=== PATIENT | female | born 1970 | race Caucasian/White ===

== ENCOUNTER 2017-08-11 10:45 | Inpatient (IN) | payer OTHER ==
[2017-08-11 11:00] VITALS: BMI 30.7
[2017-08-11] MEDS ORDERED: morphine CARPU-JECT 4 MG/1 ML DISP.SYRIN IVPUSH ONE ×2 (11:38→15:29)
[2017-08-11 11:40] LABS: URINE APPEARANCE SLCLOUDY; URINE BILIRUBIN NEGATIVE (NEGATIVE); URINE BLOOD NEGATIVE (NEGATIVE); URINE COLOR YELLOW; URINE GLUCOSE (UA) NEGATIVE (NEGATIVE); URINE KETONE NEGATIVE (NEGATIVE); URINE LEUK ESTERASE NEGATIVE (NEGATIVE); URINE NITRITE NEGATIVE (NEGATIVE); URINE PROTEIN NEGATIVE (NEGATIVE)
[2017-08-11 11:43] LABS: BASO % 0.2 % (0-2.0); EOS % 1.4 % (0-4.5); HEMATOCRIT 37.4 % (32.4-45.2); HEMOGLOBIN 12.6 GM/dL (10.7-15.3); MCH 30.1 pg (25.7-33.7); MCHC 33.7 g/dl (32.0-36.0); MEAN CELL VOLUME 89.2 fl (80-96); MEAN PLT VOLUME 9.1 fl (7.5-11.1); MONO % 6.1 % (3.8-10.2); NEUT % 75.3 % (42.8-82.8); PLATELET COUNT 204 K/MM3 (134-434); RBC 4.19 M/mm3 (3.60-5.2); RDW 13.1 % (11.6-15.6); WHITE BLOOD COUNT 11.2 K/mm3 (4.0-10.0)
--- NOTE | 2017-08-11 11:43 | PDOC ---
History of Present Illness - General Chief Complaint: Pain, Acute Stated Complaint: PAIN Time Seen by Provider: 08/11/17 11:35 History Source: Patient - History of Present Illness Timing/Duration: reports: other (yesterday) Quality: reports: severe Abdominal Pain Onset Location: reports: other (lower abd) Past History - Past Medical History Allergies/Adverse Reactions: Allergies Allergy/AdvReac Type Severity Reaction Status Date / Time No Known Allergies Allergy Verified 08/11/17 11:00 Home Medications: Ambulatory Orders NK [No Known Home Medication] 08/11/17 Asthma: Yes COPD: No - Surgical History Abdominal Surgery: No Appendectomy: No - Suicide/Smoking/Psychosocial Hx Smoking Status: No Smoking History: Never smoked Number of Cigarettes Smoked Daily: 0 Hx Alcohol Use: No Drug/Substance Use Hx: No Substance Use Type: None Review of Systems - Review of Systems Constitutional: No: Chills, Fever ABD/GI: No: Blood Streaked Bowels, Constipated, Diarrhea, Nausea, Vomiting : No: Burning, Dysuria, Flank Pain, Hematuria *Physical Exam - Vital Signs Last Vital Signs Temp Pulse Resp BP Pulse Ox 98.4 F 83 18 145/80 97 08/11/17 10:58 08/11/17 10:58 08/11/17 10:58 08/11/17 10:58 08/11/17 10:58 - Physical Exam General Appearance: Yes: Appropriately Dressed, Severe Distress HEENT: positive: Normal Voice Neck: positive: Supple Respiratory/Chest: negative: Respiratory Distress Gastrointestinal/Abdominal: positive: Normal Bowel Sounds, Tender (to lower abd diffusely), Soft. negative: Pulsatile Mass, Distended, Guarding, Rebound, Hernia, Mass Musculoskeletal: negative: CVA Tenderness Extremity: positive: Normal Inspection Integumentary: positive: Dry, Warm Neurologic: positive: Fully Oriented, Alert, Normal Mood/Affect ED Treatment Course - LABORATORY CBC & Chemistry Diagram: 08/11/17 11:30 08/11/17 11:30 Medical Decision Making - Medical Decision Making 08/11/17 11:39 46 yo F, h/o asthma, s/p csection x 2 remotely, p/w severe lower abd pain since yesterday. No change in BM, dysuria, vag discharge, n/v/f/c. No known h/o ovarian cysts/fibroids. No h/o similar pain. See exam Lower abd pain Pt appears very uncomfortable, writhing in pain but stable w/ poorly localized lower abd tenderness on exam Possible diverticulitis vs appy, less like SBO, pyelo, renal colic or pelvic pathology -pain control -IVF -labs -CT 08/11/17 13:23 Acute sigmoid diverticulitis without perf or abscess on CT. White count 11. Patient more comfortable with morphine and no n/v or fever. IV antibiotics in progress. Possibly can be treated as outpatient, will reassess 08/11/17 13:55 Signed out to ED resident pending reassessment *DC/Admit/Observation/Transfer Diagnosis at time of Disposition: Diverticulitis - Referrals - Patient Instructions - Post Discharge Activity
[2017-08-11] MEDS ORDERED: morphine SULFATE 4 MG/ML VIAL ONE ×2 (11:47→15:31)
[2017-08-11 12:02] LABS: ALBUMIN 4.1 g/dl (3.4-5.0); ANION GAP 7 (8-16); BLOOD UREA NITROGEN 12 mg/dL (7-18); CALCIUM 8.8 mg/dL (8.5-10.1); CHLORIDE 105 mmol/L (98-107); CO2 29 mmol/L (21-32); CREATININE 0.6 mg/dL (0.55-1.02); GLUCOSE,RANDOM 115 mg/dL (74-106); LIPASE 81 U/L (73-393); POTASSIUM 3.8 mmol/L (3.5-5.1); SGOT/AST 10 U/L (15-37); SGPT/ALT 24 U/L (12-78); SODIUM 141 mmol/L (136-145)
[2017-08-11 12:04] LABS: BILIRUBIN,TOTAL 0.7 mg/dL (0.2-1.0); TOT PROT 7.4 g/dl (6.4-8.2)
[2017-08-11 12:05] LABS: ALK PHOS 86 U/L (45-117)
[2017-08-11] MEDS ORDERED: CIPROFLOXACIN 400 MG/D5W 400 MG/200 ML IVPB IVPB ONE (13:22)
[2017-08-11] MEDS ORDERED: METRONIDAZOLE 500 MG PREMIXED 500 MG/100 ML MG IVPB ONE ×2 (13:22→13:33)
--- NOTE | 2017-08-11 14:46 | PDOC ---
*Physical Exam - Vital Signs Last Vital Signs Temp Pulse Resp BP Pulse Ox 98.4 F 83 18 145/80 97 08/11/17 10:58 08/11/17 10:58 08/11/17 10:58 08/11/17 10:58 08/11/17 10:58 - Physical Exam General Appearance: Yes: Nourished, Appropriately Dressed Respiratory/Chest: positive: Lungs Clear, Normal Breath Sounds Cardiovascular: positive: Regular Rhythm, Regular Rate, S1, S2 Gastrointestinal/Abdominal: positive: Normal Bowel Sounds, Soft, Protuberent, Tenderness (RLQ and LLQ ttp) ED Treatment Course - LABORATORY CBC & Chemistry Diagram: 08/11/17 11:30 08/11/17 11:30 - ADDITIONAL ORDERS Additional order review: Laboratory Results 08/11/17 08/11/17 08/11/17 11:44 11:30 11:30 Sodium 141 Potassium 3.8 Chloride 105 Carbon Dioxide 29 D Anion Gap 7 L BUN 12 D Creatinine 0.6 Creat Clearance w eGFR > 60 Random Glucose 115 H Calcium 8.8 Total Bilirubin 0.7 D AST 10 L ALT 24 Alkaline Phosphatase 86 D Total Protein 7.4 Albumin 4.1 Lipase 81 Serum , Qual Negative Urine Color Urine Appearance Urine pH Ur Specific [place] Urine Protein Urine Glucose (UA) Urine Ketones Urine Blood Urine Nitrite Urine Bilirubin Urine Urobilinogen Urine HCG, Qual Negative 08/11/17 11:30 Sodium Potassium Chloride Carbon Dioxide Anion Gap BUN Creatinine Creat Clearance w eGFR Random Glucose Calcium Total Bilirubin AST ALT Alkaline Phosphatase Total Protein Albumin Lipase Serum , Qual Urine Color Yellow Urine Appearance Slcloudy Urine pH 7.0 Ur Specific [place] 1.018 Urine Protein Negative Urine Glucose (UA) Negative Urine Ketones Negative Urine Blood Negative Urine Nitrite Negative Urine Bilirubin Negative Urine Urobilinogen 2.0 H Urine HCG, Qual 08/11/17 11:30 RBC 4.19 MCV 89.2 MCHC 33.7 RDW 13.1 MPV 9.1 Neutrophils % 75.3 D Lymphocytes % 17.0 D Monocytes % 6.1 Eosinophils % 1.4 D Basophils % 0.2 - Medications Given in the ED: ED Medications Discontinued Medications Generic Name Dose Route Start Last Admin Trade Name Freq PRN Reason Stop Dose Admin Metronidazole 500 mg in 100 mls @ 100 mls/hr 08/11/17 13:22 08/11/17 13:48 Flagyl 500mg Premixed Ivpb - IVPB 08/11/17 14:21 100 mls/hr ONCE ONE Administration Morphine Sulfate 4 mg 08/11/17 11:38 08/11/17 11:55 Morphine Injection - IVPUSH 08/11/17 11:39 4 mg ONCE ONE Administration Medical Decision Making - Medical Decision Making 08/11/17 15:05 46yo woman with h/o asthma s/p who presents with severe lower abdominal pain and imaging c/w acute sigmoid diverticulitis w/o perforation or abscess. Received one dose of Ciprofloxacin and Flagyl. 08/11/17 15:47 Patient continues have significant abdominal pain (03/13), and now reports chills. Last morphine was ~3hours ago. Will give additional morphine and request admission for further management. 08/11/17 17:50 Accepted by [facility] under Dr. Malik to M/S. *DC/Admit/Observation/Transfer Diagnosis at time of Disposition: Diverticulitis - Referrals - Patient Instructions - Post Discharge Activity
[2017-08-11] MEDS ORDERED: morphine SULFATE 4 MG/ML VIAL IVPUSH PRN (17:14)
--- NOTE | 2017-08-11 17:16 | PN ---
Teaching Attending Note Name of Resident: Brooke Eli ATTENDING PHYSICIAN STATEMENT I saw and evaluated the patient. I reviewed the resident's note and discussed the case with the resident. I agree with the resident's findings and plan as documented. SUBJECTIVE: Patient is a 46yo F with PMH of asthma presents with severe bilateral lower quadrant abdominal pain x 1 day. Pain is 10/10/ sharp , and sometimes radiates to her back. PATIENT denies fever, chills, hematemesis, nausea, vomiting, diarrhea, hematochezia, melena, chest pain, sob. OBJECTIVE: Vital Signs Temperature 98.4 F 08/11/17 10:58 Pulse Rate 83 08/11/17 10:58 Respiratory Rate 18 08/11/17 10:58 Blood Pressure 145/80 08/11/17 10:58 O2 Sat by Pulse Oximetry (%) 97 08/11/17 10:58 CBCD WBC 11.2 K/mm3 (4.0-10.0) H 08/11/17 11:30 RBC 4.19 M/mm3 (3.60-5.2) 08/11/17 11:30 Hgb 12.6 GM/dL (10.7-15.3) 08/11/17 11:30 Hct 37.4 % (32.4-45.2) 08/11/17 11:30 MCV 89.2 fl (80-96) 08/11/17 11:30 MCHC 33.7 g/dl (32.0-36.0) 08/11/17 11:30 RDW 13.1 % (11.6-15.6) 08/11/17 11:30 Plt Count 204 K/MM3 (134-434) D 08/11/17 11:30 MPV 9.1 fl (7.5-11.1) 08/11/17 11:30 CMP Sodium 141 mmol/L (136-145) 08/11/17 11:30 Potassium 3.8 mmol/L (3.5-5.1) 08/11/17 11:30 Chloride 105 mmol/L (98-107) 08/11/17 11:30 Carbon Dioxide 29 mmol/L (21-32) D 08/11/17 11:30 Anion Gap 7 (8-16) L 08/11/17 11:30 BUN 12 mg/dL (7-18) D 08/11/17 11:30 Creatinine 0.6 mg/dL (0.55-1.02) 08/11/17 11:30 Creat Clearance w eGFR > 60 (>60) 08/11/17 11:30 Random Glucose 115 mg/dL (74-106) H 08/11/17 11:30 Calcium 8.8 mg/dL (8.5-10.1) 08/11/17 11:30 Total Bilirubin 0.7 mg/dL (0.2-1.0) D 08/11/17 11:30 AST 10 U/L (15-37) L 08/11/17 11:30 ALT 24 U/L (12-78) 08/11/17 11:30 Alkaline Phosphatase 86 U/L (45-117) D 08/11/17 11:30 Total Protein 7.4 g/dl (6.4-8.2) 08/11/17 11:30 Albumin 4.1 g/dl (3.4-5.0) 08/11/17 11:30 Current Medications Generic Name Dose Route Start Last Admin Trade Name Freq PRN Reason Stop Dose Admin Heparin Sodium (Porcine) 5,000 unit 08/11/17 18:00 Heparin - SQ Q8H-IV SYLVIA Sodium Chloride 1,000 mls @ 100 mls/hr 08/11/17 17:15 Normal Saline - IV ASDIR SYLVIA Morphine Sulfate 2 mg 08/11/17 17:14 Morphine Injection - IVPUSH Q4H PRN PAIN Home Medications Medication Instructions Recorded NK [No Known Home Medication] 08/11/17 PE: per resident's notes Heart: S1S2 positive CHEST: CTABL Abdomen:diffuse tenderness to palpation EXT: pulses are positive. ASSESSMENT AND PLAN: 46yo woman with h/o asthma s/p who presents with severe lower abdominal pain and imaging c/w acute sigmoid diverticulitis w/o perforation or abscess. # Acute diverticulitis on Flagyl and Rocephin IN, for consult, NPO, IVF. pain meds morphine prn # Hx of asthma stable DVT ppx with Heparin sq GI ppx with Pepcid BID
[2017-08-11] MEDS: SODIUM CHLORIDE 1,000 ML IV SCH (17:51)
[2017-08-11] MEDS ORDERED: METRONIDAZOLE PREMIXED IVPB 250 MG/50 ML MG IVPB SCH (18:00)
--- NOTE | 2017-08-11 18:22 | HP ---
CHIEF COMPLAINT: abdominal pain PCP: [facility] HISTORY OF PRESENT ILLNESS: 46yo F with PMH of asthma presents with severe royal lower quadrant abdominal pain x 1 day. Pain is described as sharp, rated 10/10 at its peak. Pain sometimes radiates to her back. Pt has had smaller bowel movements since yesterday which she attributes to this pain (on straining). Pt found to have acute sigmoid diverticulitis on CTAP. Pt denies sick contacts. Pt denies fever , chills, hematemesis, nausea, vomiting, diarrhea, hematochezia, melena, chest pain, sob. ER course was notable for: (1) CT Ab/Pelvis reveals acute sigmoid diverticulitis (2) Ceftriaxone and Flagyl given (3) Morphine given for pain PAST MEDICAL HISTORY: asthma PAST SURGICAL HISTORY: c-sections in 2006 and 2007 Social History: Smoking: never Alcohol: denies Drugs: denies Family History: 2 brothers with DM Allergies No Known Allergies Allergy (Verified 08/11/17 11:00) HOME MEDICATIONS: Home Medications Medication Instructions Recorded NK [No Known Home Medication] 08/11/17 REVIEW OF SYSTEMS CONSTITUTIONAL: Absent: fever, chills, diaphoresis, generalized weakness, malaise, loss of appetite, weight change HEENT: Absent: rhinorrhea, nasal congestion, throat pain, ear pain, visual changes CARDIOVASCULAR: Absent: chest pain, palpitations, irregular heart rate, lightheadedness, peripheral edema RESPIRATORY: Absent: cough, shortness of breath, wheezing, stridor, hemoptysis GASTROINTESTINAL: abdominal pain Absent: abdominal distension, nausea, vomiting, diarrhea, constipation, melena, hematochezia GENITOURINARY: Absent: dysuria, hematuria MUSCULOSKELETAL: Absent: myalgia, arthralgia, back pain, neck pain SKIN: Absent: rash, itching, pallor HEMATOLOGIC/IMMUNOLOGIC: Absent: easy bleeding, easy bruising NEUROLOGIC: Absent: headache, focal weakness or paresthesias PHYSICAL EXAMINATION Vital Signs - 24 hr 08/11/17 08/11/17 10:58 17:32 Temperature 98.4 F 99 F Pulse Rate 83 Pulse Rate [ 88 Right Radial] Respiratory 18 18 Rate Blood Pressure 145/80 Blood Pressure 146/80 [Left Arm] O2 Sat by Pulse 97 97 Oximetry (%) GENERAL: Awake, alert, and fully oriented, in no acute distress. HEAD: Normal with no signs of trauma. EYES: Pupils equal, round and reactive to light, extraocular movements intact, sclera anicteric, conjunctiva clear. No lid lag. EARS, NOSE, THROAT: Oropharynx clear without exudates. Moist mucous membranes. NECK: Trachea midline, supple. LUNGS: Breath sounds equal, clear to auscultation bilaterally. No wheezes, and no crackles. No accessory muscle use. HEART: Regular rate and rhythm, normal S1 and S2 without murmur, rub or gallop. ABDOMEN: Royal lower quadrants tender to palpation. Soft, not distended, normoactive bowel sounds, no guarding, no rebound, no masses. MUSCULOSKELETAL: Normal range of motion at all joints. No bony deformities or tenderness. No CVA tenderness. LOWER EXTREMITIES: Warm, well-perfused. No calf tenderness. No peripheral edema. NEUROLOGICAL: Muscle strength 5/5 throughout. No facial droop. Normal speech. PSYCHIATRIC: Cooperative. Good eye contact. Appropriate mood and affect. SKIN: Warm, dry, normal turgor, no rashes or lesions noted, normal capillary refill. Laboratory Results - last 24 hr 08/11/17 08/11/17 08/11/17 11:30 11:30 11:30 WBC 11.2 H RBC 4.19 Hgb 12.6 Hct 37.4 MCV 89.2 MCH 30.1 MCHC 33.7 RDW 13.1 Plt Count 204 D MPV 9.1 Neutrophils % 75.3 D Lymphocytes % 17.0 D Monocytes % 6.1 Eosinophils % 1.4 D Basophils % 0.2 Sodium 141 Potassium 3.8 Chloride 105 Carbon Dioxide 29 D Anion Gap 7 L BUN 12 D Creatinine 0.6 Creat Clearance w eGFR > 60 Random Glucose 115 H Calcium 8.8 Total Bilirubin 0.7 D AST 10 L ALT 24 Alkaline Phosphatase 86 D Total Protein 7.4 Albumin 4.1 Lipase 81 Serum , Qual Urine Color Yellow Urine Appearance Slcloudy Urine pH 7.0 Ur Specific [place] 1.018 Urine Protein Negative Urine Glucose (UA) Negative Urine Ketones Negative Urine Blood Negative Urine Nitrite Negative Urine Bilirubin Negative Urine Urobilinogen 2.0 H Ur Leukocyte Esterase Negative Urine HCG, Qual 08/11/17 08/11/17 11:30 11:44 WBC RBC Hgb Hct MCV MCH MCHC RDW Plt Count MPV Neutrophils % Lymphocytes % Monocytes % Eosinophils % Basophils % Sodium Potassium Chloride Carbon Dioxide Anion Gap BUN Creatinine Creat Clearance w eGFR Random Glucose Calcium Total Bilirubin AST ALT Alkaline Phosphatase Total Protein Albumin Lipase Serum , Qual Negative Urine Color Urine Appearance Urine pH Ur Specific [place] Urine Protein Urine Glucose (UA) Urine Ketones Urine Blood Urine Nitrite Urine Bilirubin Urine Urobilinogen Ur Leukocyte Esterase Urine HCG, Qual Negative IMAGIN08/11/17 CT Ab/Pel -> (1) Acute sigmoid diverticulitis with small volume of free fluid, sans evidence of perforation. No drainable collection at this time. (2 ) Mild hepatomegaly and hepatic steatosis. (3) 1.9 x 1.6 cm Right adnexal cystic lesion. ASSESSMENT/PLAN: 46yo F with PMH of asthma presents with severe royal lower quadrant abdominal pain , found to have acute sigmoid diverticulitis, admitted to Med-Surg. # diverticulitis - monitor leukocytosis - GI Consult - Dr. Crowder - f/u urine culture - continue IV Ceftriaxone and IV Flagyl - pain control with Morphine prn # asthma - inactive # FEN - Fluids: NS @ 100 ml/hr - Electrolytes: wnl, continue to monitor - Nutrition: npo # Prophylaxis - DVT ppx with Heparin TID - GI ppx with Pepcid BID Visit type - Emergency Visit Emergency Visit: Yes ED Registration Date: 08/11/17 Care time: The patient presented to the Emergency Department on the above date and was hospitalized for further evaluation of their emergent condition. - New Patient This patient is new to me today: Yes Date on this admission: 08/11/17 - Critical Care Critical Care patient: No
[2017-08-11] MEDS ORDERED: FLU VACCINE QUAD 60 MCG/0.5 ML (MDV 17-18) IM ONE (19:30)
[2017-08-11] MEDS: METRONIDAZOLE 500 MG PREMIXED 500 MG/100 ML MG IVPB SCH (20:38)
[2017-08-11] MEDS: HEPARIN NA (PORCINE) 5,000 UNITS/ML 1ML VIAL SQ SCH (22:24)
[2017-08-11] MEDS: FAMOTIDINE IV 20 MG/12 ML VIAL IVPUSH SCH (22:24)
[2017-08-12] MEDS: CEFTRIAXONE 1 G/50 ML PREMIX 50 ML IVPB SCH ×2 (01:56→09:13)
[2017-08-12] MEDS ORDERED: CEFTRIAXONE 1 GM in DEXTROSE 5%-WATER - 100 ML IVPB SCH (02:00)
[2017-08-12] MEDS: METRONIDAZOLE 500 MG PREMIXED 500 MG/100 ML MG IVPB SCH ×4 (02:39→21:55)
[2017-08-12] MEDS: morphine SULFATE 4 MG/ML VIAL IVPUSH PRN ×3 (05:43→12:41)
[2017-08-12] MEDS: HEPARIN NA (PORCINE) 5,000 UNITS/ML 1ML VIAL SQ SCH ×3 (05:43→22:41)
[2017-08-12] MEDS: SODIUM CHLORIDE 1,000 ML IV SCH (05:45)
[2017-08-12 08:27] LABS: HEMATOCRIT 33.9 % (32.4-45.2); HEMOGLOBIN 11.7 GM/dL (10.7-15.3); MCH 30.8 pg (25.7-33.7); MCHC 34.3 g/dl (32.0-36.0); MEAN CELL VOLUME 89.7 fl (80-96); MEAN PLT VOLUME 9.5 fl (7.5-11.1); PLATELET COUNT 178 K/MM3 (134-434); RBC 3.79 M/mm3 (3.60-5.2); RDW 12.8 % (11.6-15.6); WHITE BLOOD COUNT 10.7 K/mm3 (4.0-10.0)
[2017-08-12 08:41] LABS: INR 1.41 (0.82-1.09); PROTHROMBIN TIME (PATIENT) 15.9 SEC (9.98-11.88)
[2017-08-12 08:44] LABS: ACTIVATED PTT 36.2 SECONDS (26.9-34.4)
[2017-08-12 08:56] LABS: ANION GAP 9 (8-16); BLOOD UREA NITROGEN 12 mg/dL (7-18); CALCIUM 7.5 mg/dL (8.5-10.1); CHLORIDE 106 mmol/L (98-107); CO2 25 mmol/L (21-32); CREATININE 0.5 mg/dL (0.55-1.02); GLUCOSE,RANDOM 102 mg/dL (74-106); POTASSIUM 3.3 mmol/L (3.5-5.1); SODIUM 140 mmol/L (136-145)
[2017-08-12] MEDS ORDERED: PT OWN MED DRAWER 7, Y5N ONE (09:10)
--- NOTE | 2017-08-12 09:11 | PN ---
Physical Exam: SUBJECTIVE: Patient seen and examined Less pain than yesterday , and feeling better. Still having pain. OBJECTIVE: Vital Signs Temperature 99.3 F 08/12/17 08:00 Pulse Rate 81 08/12/17 08:00 Respiratory Rate 18 08/12/17 08:00 Blood Pressure 113/67 08/12/17 08:00 O2 Sat by Pulse Oximetry (%) 97 08/11/17 22:00 GENERAL: The patient is awake, alert, and fully oriented, in no acute distress. HEAD: Normal with no signs of trauma. EYES: PERRL, extraocular movements intact, sclera anicteric, conjunctiva clear. ENT: Ears normal, oropharynx clear without exudates, moist mucous membranes. NECK: Trachea midline, full range of motion, supple. LUNGS: Breath sounds equal, clear to auscultation bilaterally, no wheezes, no crackles, no accessory muscle use. HEART: Regular rate and rhythm, S1, S2 without murmur, rub or gallop. ABDOMEN: Soft, mild tenderness, nondistended, normoactive bowel sounds, no guarding, no rebound, no hepatosplenomegaly, no masses appreciated. EXTREMITIES: 2+ pulses, warm, well-perfused, no edema. NEUROLOGICAL: Cranial nerves II through XII grossly intact. Normal speech, gait not observed. PSYCH: Normal mood, normal affect. SKIN: Warm, dry, normal turgor, no rashes or lesions noted Active Medications Generic Name Dose Route Start Last Admin Trade Name Freq PRN Reason Stop Dose Admin Heparin Sodium (Porcine) 5,000 unit 08/11/17 22:00 08/12/17 05:43 Heparin - SQ 5,000 unit TID SYLVIA Administration Sodium Chloride 1,000 mls @ 100 mls/hr 08/11/17 17:15 08/12/17 05:45 Normal Saline - IV 100 mls/hr ASDIR SYLVIA Administration Metronidazole 500 mg in 100 mls @ 100 mls/hr 08/11/17 17:30 08/12/17 02:39 Flagyl 500mg Premixed Ivpb - IVPB 100 mls/hr Q6H-IV SYLVIA Administration CEFTRIAXONE 1 G/50 ML PREMIX 50 mls @ 100 mls/hr 08/12/17 02:00 08/12/17 01: 56 Ceftriaxone 1 Gm-D5w Bag IVPB 100 mls/hr DAILY SYLVIA Administration Famotidine 20 mg in 12 mls @ 144 mls/hr 08/11/17 22:00 08/11/17 22:24 Pepcid 20 Mg/12 Ml Push IVPUSH 144 mls/hr BID SYLVIA Administration Morphine Sulfate 1 mg 08/11/17 19:10 08/12/17 05:43 Morphine Sulfate IVPUSH 1 mg Q3H PRN Administration PAIN Home Medications Medication Instructions Recorded NK [No Known Home Medication] 08/11/17 08/11/17 CT Ab/Pelvis: Acute sigmoid diverticulitis with small volume of free fluid, sans evidence of perforation. No drainable collection at this time. Mild hepatomegaly and hepatic steatosis. 1.9 x 1.6 cm Right adnexal cystic lesion. ASSESSMENT/PLAN: 46yo F with PMH of asthma presents with severe sue lower quadrant abdominal pain , found to have acute sigmoid diverticulitis, admitted to Med-Surg. # Acute diverticulitis on Flagyl and Rocephin IV continue seen by covering for for consult, NPO, IVF. pain meds morphine prn reduced the dose f ,morphine to 1gm q8h. # Hx of asthma stable; patient doesn't take any meds. DVT ppx with Heparin sq GI ppx with Pepcid BID Visit type - Emergency Visit Emergency Visit: Yes ED Registration Date: 08/11/17 Care time: The patient presented to the Emergency Department on the above date and was hospitalized for further evaluation of their emergent condition. - New Patient This patient is new to me today: No - Critical Care Critical Care patient: No
--- NOTE | 2017-08-12 12:19 | CON.GI ---
Consult Consult Specialty:: Gastroenterology ( covering Dr Crowder) Referred by:: Dr Rg Reason for Consultation:: Abdominal pain - History of Present Illness Chief Complaint: LLQ pain since 08/10 History of Present Illness: 46F developed LLQ pain on 08/10 that became much worse yesterday. She had fevers at home and has been constipated since her pain began. She has never had this pain before. She generally moves her bowels daily and denies any recent change in stool caliber. No FH of colon cancer. The pain is sharp and constant. History is obtained using [employer] interpreter # [id number]. 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 (year): age 15 History of Recent Travel: No Home Medications - Allergies Allergies/Adverse Reactions: Allergies Allergy/AdvReac Type Severity Reaction Status Date / Time No Known Allergies Allergy Verified 08/11/17 11:00 - Home Medications Home Medications: Ambulatory Orders NK [No Known Home Medication] 08/11/17 Family Disease History - Family Disease History Family Disease History: Diabetes: Brother, Respiratory: Father ( 67 of respiratory illness), Other: Mother ( age 37 during childbirth) Review of Systems - Review of Systems Constitutional: reports: Chills, Fever Eyes: reports: No Symptoms HENT: reports: No Symptoms Neck: reports: No Symptoms Cardiovascular: reports: No Symptoms Respiratory: reports: No Symptoms Gastrointestinal: reports: Abdominal Pain, Constipation Genitourinary: reports: No Symptoms Musculoskeletal: reports: No Symptoms Neurological: reports: No Symptoms Physical Exam-GI Vital Signs: Vital Signs Temperature 99.3 F 08/12/17 08:00 Pulse Rate 81 08/12/17 08:00 Respiratory Rate 18 08/12/17 08:00 Blood Pressure 113/67 08/12/17 08:00 O2 Sat by Pulse Oximetry (%) 97 12/08/17 22:00 CBC,CMP WBC 10.7 K/mm3 (4.0-10.0) H 08/12/17 07:30 RBC 3.79 M/mm3 (3.60-5.2) 08/12/17 07:30 Hgb 11.7 GM/dL (10.7-15.3) 08/12/17 07:30 Hct 33.9 % (32.4-45.2) 08/12/17 07:30 MCV 89.7 fl (80-96) 08/12/17 07:30 MCH 30.8 pg (25.7-33.7) 08/12/17 07:30 MCHC 34.3 g/dl (32.0-36.0) 08/12/17 07:30 RDW 12.8 % (11.6-15.6) 08/12/17 07:30 Plt Count 178 K/MM3 (134-434) 08/12/17 07:30 MPV 9.5 fl (7.5-11.1) 08/12/17 07:30 Neutrophils % 75.3 % (42.8-82.8) D 08/11/17 11:30 Lymphocytes % 17.0 % (8-40) D 08/11/17 11:30 Monocytes % 6.1 % (3.8-10.2) 08/11/17 11:30 Eosinophils % 1.4 % (0-4.5) D 08/11/17 11:30 Basophils % 0.2 % (0-2.0) 08/11/17 11:30 Sodium 140 mmol/L (136-145) 08/12/17 07:30 Potassium 3.3 mmol/L (3.5-5.1) L 08/12/17 07:30 Chloride 106 mmol/L (98-107) 08/12/17 07:30 Carbon Dioxide 25 mmol/L (21-32) 08/12/17 07:30 Anion Gap 9 (8-16) 08/12/17 07:30 BUN 12 mg/dL (7-18) 08/12/17 07:30 Creatinine 0.5 mg/dL (0.55-1.02) L 08/12/17 07:30 Creat Clearance w eGFR > 60 (>60) 08/11/17 11:30 Random Glucose 102 mg/dL (74-106) 08/12/17 07:30 Calcium 7.5 mg/dL (8.5-10.1) L 08/12/17 07:30 Total Bilirubin 0.7 mg/dL (0.2-1.0) D 08/11/17 11:30 AST 10 U/L (15-37) L 08/11/17 11:30 ALT 24 U/L (12-78) 08/11/17 11:30 Alkaline Phosphatase 86 U/L (45-117) D 08/11/17 11:30 Total Protein 7.4 g/dl (6.4-8.2) 08/11/17 11:30 Albumin 4.1 g/dl (3.4-5.0) 08/11/17 11:30 Lipase 81 U/L (73-393) 08/11/17 11:30 Serum , Qual Negative 08/11/17 11:44 Current Medications Generic Name Dose Route Start Last Admin Trade Name Freq PRN Reason Stop Dose Admin Heparin Sodium (Porcine) 5,000 unit 08/11/17 22:00 08/12/17 05:43 Heparin - SQ 5,000 unit TID SYLVIA Administration Sodium Chloride 1,000 mls @ 100 mls/hr 08/11/17 17:15 08/12/17 05:45 Normal Saline - IV 100 mls/hr ASDIR SYLVIA Administration Metronidazole 500 mg in 100 mls @ 100 mls/hr 08/11/17 17:30 08/12/17 09:13 Flagyl 500mg Premixed Ivpb - IVPB 100 mls/hr Q6H-IV SYLVIA Administration CEFTRIAXONE 1 G/50 ML PREMIX 50 mls @ 100 mls/hr 08/12/17 02:00 08/12/17 09: 13 Ceftriaxone 1 Gm-D5w Bag IVPB 100 mls/hr DAILY SYLVIA Administration Famotidine 20 mg in 12 mls @ 144 mls/hr 08/11/17 22:00 08/11/17 22:24 Pepcid 20 Mg/12 Ml Push IVPUSH 144 mls/hr BID SYLVIA Administration Morphine Sulfate 1 mg 08/11/17 19:10 08/12/17 05:43 Morphine Sulfate IVPUSH 1 mg Q3H PRN Administration PAIN Constitutional: Yes: Well Nourished Eyes: Yes: Conjunctiva Clear HENT: Yes: Atraumatic Neck: Yes: Supple Cardiovascular: Yes: Regular Rate and Rhythm Respiratory: Yes: CTA Bilaterally Gastrointestinal Inspection: Yes: Scars (healed Pfannensteil incision) ...Auscultate: Yes: Hypoactive Bowel Sounds ...Palpate: Yes: Tenderness (suprapubic and LLQ) ...Rectal Exam: Yes: Guaiac Negative, Sphincter Tone Normal Edema: No Integumentary: Yes: WNL Neurological: Yes: Alert Labs: CBC, BMP 08/12/17 07:30 08/12/17 07:30 INR, PTT INR 1.41 (0.82-1.09) H 08/12/17 07:30 Imaging - Results Cat Scan: Report Reviewed (Natalio Zapien Name: [facility] Phys: Penelope Quarles : 1970 Age: 46 Sex: F [facility] Acct: [id number] Loc: [address] Exam Date: 08/11/17 Status: [place] [id number] Unit Number: [id number] EXAM#: TYPE/EXAM: RESULT: [id number] CT/ABDOMEN PELVIS CT WITH CONTR EXAM: CT abdomen and pelvis with IV contrast. INDICATION: Lower abdominal pain. TECHNIQUE: Contiguous axial CT images of the abdomen and pelvis were obtained without oral contrast , following intravenous administration of 100 mL of Omnipaque 350 contrast. Coronal and sagittal reconstructions obtained. COMPARISON: None. FINDINGS: The visualized lung bases are unremarkable. The heart is borderline in size. The liver is enlarged measuring up to 15.5 cm in the midclavicular line, with normal contour. There is hepatic steatosis. The gallbladder is not pathologically distended. There is no evidence of biliary ductal dilatation. The pancreas is unremarkable. Normal size spleen, with no focal lesions. There is no mass in the adrenal glands. The kidneys are normal in size with symmetric enhancement. There is no hydroureteronephrosis. Normal caliber abdominal aorta. There are no pathologically enlarged retroperitoneal lymph nodes by CT size criteria. There is acute diverticulitis in the sigmoid colon with extensive pericolonic fat stranding and thickening of the mesocolon. There is a small volume of free fluid in the surrounding fat layering in the pelvis. There is no drainable collection within the abdomen or pelvis. There is no free intraperitoneal air. There are no dilated loops of large or small bowel to suggest obstruction. The uterus is unremarkable. There is a 1.9 x 1.6 cm right adnexal cystic lesion. The urinary bladder is underdistended, limiting evaluation. There is no evidence of acute fracture in the visualized osseous structures. IMPRESSION: 1. Acute sigmoid diverticulitis with small volume of free fluid. No CT evidence of perforation. No drainable collection at this time. 2. Mild hepatomegaly. Hepatic steatosis. 3. Nonspecific 1.9 x 1.6 cm right adnexal cystic lesion. Reported By: Adrienne Roger DO 08/11/17 1312 Bernie Quarles Technologist : Ottoniel Singletary Transcribed Date/Time: 08/11/17 1312 [employer]: Adrienne Roger DO Printed Date/Time: By: Signed by: Adrienne Roger Signed on: 11-Aug-2017 13:13) Problem List - Problems (1) Constipated Assessment/Plan: Related to diverticulitis Code(s): K59.00 - CONSTIPATION, UNSPECIFIED (2) Diverticulitis Assessment/Plan: Clinical picture and CT entirely consistent with sigmoid diverticulitis. No overt abscess is seen. I have discussed the potential need for surgery including a temporary colostomy if she fails to respond to antibiotics. Advised surgical consultation . Continue NPO and antibiotics. Dr Crowder will return 08/14. Code(s): K57.92 - DVTRCLI OF INTEST, PART UNSP, W/O PERF OR ABSCESS W/O BLEED
[2017-08-12] MEDS ORDERED: ACETAMINOPHEN 325 MG TABLET (FP) PO PRN (12:48)
[2017-08-12] MEDS: FAMOTIDINE IV 20 MG/12 ML VIAL IVPUSH SCH ×2 (12:50→21:57)
[2017-08-12] MEDS: D5-1/2NS+40 MEQ KCL - 40 MEQ/1,000 ML INFUS.BAG IV SCH (15:15)
[2017-08-12] MEDS ORDERED: morphine SULFATE 4 MG/ML VIAL IVPUSH PRN (17:54)
[2017-08-13] MEDS: HEPARIN NA (PORCINE) 5,000 UNITS/ML 1ML VIAL SQ SCH ×3 (05:32→21:08)
[2017-08-13] MEDS: D5-1/2NS+40 MEQ KCL - 40 MEQ/1,000 ML INFUS.BAG IV SCH ×2 (05:33→15:15)
[2017-08-13 08:41] LABS: ALBUMIN 3.2 g/dl (3.4-5.0); ANION GAP 6 (8-16); BILIRUBIN,TOTAL 0.5 mg/dL (0.2-1.0); BLOOD UREA NITROGEN 8 mg/dL (7-18); CALCIUM 8.2 mg/dL (8.5-10.1); CHLORIDE 109 mmol/L (98-107); CO2 26 mmol/L (21-32); CREATININE 0.5 mg/dL (0.55-1.02); GLUCOSE,RANDOM 112 mg/dL (74-106); MAGNESIUM 1.9 mg/dL (1.8-2.4); POTASSIUM 4.1 mmol/L (3.5-5.1); SGOT/AST 11 U/L (15-37); SGPT/ALT 16 U/L (12-78); SODIUM 141 mmol/L (136-145); TOT PROT 6.5 g/dl (6.4-8.2)
[2017-08-13 08:42] LABS: ALK PHOS 66 U/L (45-117); PHOSPHOROUS 2.1 mg/dL (2.5-4.9)
[2017-08-13 08:54] LABS: BASO % 0.2 % (0-2.0); EOS % 2.5 % (0-4.5); HEMATOCRIT 34.6 % (32.4-45.2); HEMOGLOBIN 11.8 GM/dL (10.7-15.3); LYMPH % 33.4 % (8-40); MCH 30.9 pg (25.7-33.7); MCHC 34.1 g/dl (32.0-36.0); MEAN CELL VOLUME 90.7 fl (80-96); MEAN PLT VOLUME 9.5 fl (7.5-11.1); MONO % 6.8 % (3.8-10.2); NEUT % 57.1 % (42.8-82.8); PLATELET COUNT 184 K/MM3 (134-434); RBC 3.82 M/mm3 (3.60-5.2); RDW 12.8 % (11.6-15.6); WHITE BLOOD COUNT 7.5 K/mm3 (4.0-10.0)
[2017-08-13] MEDS ORDERED: morphine SULFATE 4 MG/ML VIAL IVPUSH PRN (09:58)
[2017-08-13] MEDS: METRONIDAZOLE 500 MG PREMIXED 500 MG/100 ML MG IVPB SCH ×3 (10:00→21:09)
[2017-08-13] MEDS: CEFTRIAXONE 1 G/50 ML PREMIX 50 ML IVPB SCH (10:15)
[2017-08-13] MEDS: FAMOTIDINE IV 20 MG/12 ML VIAL IVPUSH SCH ×2 (10:16→21:09)
--- NOTE | 2017-08-13 10:39 | PN ---
Progress Note (short form) - Note Progress Note: Attending Surgeon Patient seen and evaluated; chart reviewed; full note to follow. Elvis Espinoza MD FACS
--- NOTE | 2017-08-13 10:57 | PN ---
Progress Note (short form) - Note Progress Note: Patient is feeling better today with no acute distress. Used only one time of pain medication at night time. Vital Signs Temperature 98.2 F 08/13/17 08:00 Pulse Rate 76 08/13/17 08:00 Respiratory Rate 18 08/13/17 08:00 Blood Pressure 121/81 08/13/17 08:00 O2 Sat by Pulse Oximetry (%) 98 08/13/17 08:52 GENERAL: The patient is awake, alert, and fully oriented, in no acute distress. HEAD: Normal with no signs of trauma. EYES: PERRL, extraocular movements intact, sclera anicteric, conjunctiva clear. ENT: Ears normal, oropharynx clear without exudates, moist mucous membranes. NECK: Trachea midline, full range of motion, supple. LUNGS: Breath sounds equal, clear to auscultation bilaterally, no wheezes, no crackles, no accessory muscle use. HEART: Regular rate and rhythm, S1, S2 without murmur, rub or gallop. ABDOMEN: Soft, no tenderness today on palpation, feels better, nondistended, normoactive bowel sounds, no guarding, no rebound, no hepatosplenomegaly, no masses appreciated. EXTREMITIES: 2+ pulses, warm, well-perfused, no edema. NEUROLOGICAL: Cranial nerves II through XII grossly intact. Normal speech, gait not observed. PSYCH: Normal mood, normal affect. SKIN: Warm, dry, normal turgor, no rashes or lesions noted CBCD WBC 7.5 K/mm3 (4.0-10.0) 08/13/17 07:00 RBC 3.82 M/mm3 (3.60-5.2) 08/13/17 07:00 Hgb 11.8 GM/dL (10.7-15.3) 08/13/17 07:00 Hct 34.6 % (32.4-45.2) 08/13/17 07:00 MCV 90.7 fl (80-96) 08/13/17 07:00 MCHC 34.1 g/dl (32.0-36.0) 08/13/17 07:00 RDW 12.8 % (11.6-15.6) 08/13/17 07:00 Plt Count 184 K/MM3 (134-434) 08/13/17 07:00 MPV 9.5 fl (7.5-11.1) 08/13/17 07:00 CMP Sodium 141 mmol/L (136-145) 08/13/17 07:00 Potassium 4.1 mmol/L (3.5-5.1) D 08/13/17 07:00 Chloride 109 mmol/L (98-107) H 08/13/17 07:00 Carbon Dioxide 26 mmol/L (21-32) 08/13/17 07:00 Anion Gap 6 (8-16) L 08/13/17 07:00 BUN 8 mg/dL (7-18) D 08/13/17 07:00 Creatinine 0.5 mg/dL (0.55-1.02) L 08/13/17 07:00 Creat Clearance w eGFR > 60 (>60) 08/13/17 07:00 Random Glucose 112 mg/dL (74-106) H 08/13/17 07:00 Calcium 8.2 mg/dL (8.5-10.1) L 08/13/17 07:00 Total Bilirubin 0.5 mg/dL (0.2-1.0) D 08/13/17 07:00 AST 11 U/L (15-37) L 08/13/17 07:00 ALT 16 U/L (12-78) D 08/13/17 07:00 Alkaline Phosphatase 66 U/L (45-117) D 08/13/17 07:00 Total Protein 6.5 g/dl (6.4-8.2) 08/13/17 07:00 Albumin 3.2 g/dl (3.4-5.0) L D 08/13/17 07:00 Current Medications Generic Name Dose Route Start Last Admin Trade Name Freq PRN Reason Stop Dose Admin Acetaminophen 325 mg 08/12/17 12:48 08/12/17 14:16 Tylenol - PO 325 mg Q4H PRN Administration FEVER OR PAIN Heparin Sodium (Porcine) 5,000 unit 08/11/17 22:00 08/13/17 05:32 Heparin - SQ 5,000 unit TID SYLVIA Administration Metronidazole 500 mg in 100 mls @ 100 mls/hr 08/11/17 17:30 08/13/17 10:00 Flagyl 500mg Premixed Ivpb - IVPB 100 mls/hr Q6H-IV SYLVIA Administration CEFTRIAXONE 1 G/50 ML PREMIX 50 mls @ 100 mls/hr 08/12/17 02:00 08/13/17 10: 15 Ceftriaxone 1 Gm-D5w Bag IVPB 100 mls/hr DAILY SYLVIA Administration Famotidine 20 mg in 12 mls @ 144 mls/hr 08/11/17 22:00 08/13/17 10:16 Pepcid 20 Mg/12 Ml Push IVPUSH 144 mls/hr BID SYLVIA Administration Dextrose/Sodium Chloride 40 meq in 1,000 mls @ 125 mls/hr 08/12/17 14:15 06/20 05:33 D5-1/2ns+40 Meq Kcl - IV 08/13/17 22:14 125 mls/hr ASDIR SYLVIA Administration Morphine Sulfate 1 mg 08/13/17 09:58 Morphine Sulfate IVPUSH Q12H PRN PAIN Senna/Docusate Sodium 1 tablet 08/13/17 22:00 Pericolace - PO HS SYLVIA Home Medications Medication Instructions Recorded NK [No Known Home Medication] 08/11/17 Home Medication List Medication Instructions Recorded Confirmed Type NK [No Known Home Medication] 08/11/17 08/11/17 History Active Medications Generic Name Dose Route Start Last Admin Trade Name Freq PRN Reason Stop Dose Admin Acetaminophen 325 mg 08/12/17 12:48 08/12/17 14:16 Tylenol - PO 325 mg Q4H PRN Administration FEVER OR PAIN Heparin Sodium (Porcine) 5,000 unit 08/11/17 22:00 08/13/17 05:32 Heparin - SQ 5,000 unit TID SYLVIA Administration Metronidazole 500 mg in 100 mls @ 100 mls/hr 08/11/17 17:30 08/13/17 10:00 Flagyl 500mg Premixed Ivpb - IVPB 100 mls/hr Q6H-IV SYLVIA Administration CEFTRIAXONE 1 G/50 ML PREMIX 50 mls @ 100 mls/hr 08/12/17 02:00 08/13/17 10: 15 Ceftriaxone 1 Gm-D5w Bag IVPB 100 mls/hr DAILY SYLVIA Administration Famotidine 20 mg in 12 mls @ 144 mls/hr 08/11/17 22:00 08/13/17 10:16 Pepcid 20 Mg/12 Ml Push IVPUSH 144 mls/hr BID SYLVIA Administration Dextrose/Sodium Chloride 40 meq in 1,000 mls @ 125 mls/hr 08/12/17 14:15 06/20 05:33 D5-1/2ns+40 Meq Kcl - IV 08/13/17 22:14 125 mls/hr ASDIR SYLVIA Administration Morphine Sulfate 1 mg 08/13/17 09:58 Morphine Sulfate IVPUSH Q12H PRN PAIN Senna/Docusate Sodium 1 tablet 08/13/17 22:00 Pericolace - PO HS SYLVIA Laboratory Tests 08/11/17 08/12/17 08/13/17 11:30 07:30 07:00 WBC 11.2 H 10.7 H 7.5 10/12/16 CT Ab/Pelvis: Acute sigmoid diverticulitis with small volume of free fluid, sans evidence of perforation. No drainable collection at this time. Mild hepatomegaly and hepatic steatosis. 1.9 x 1.6 cm Right adnexal cystic lesion. ASSESSMENT/PLAN: 46yo F with PMH of asthma presents with severe sue lower quadrant abdominal pain , found to have acute sigmoid diverticulitis, admitted to Med-Surg. # Acute diverticulitis ; Leukocytosis is improving on IV antibiotic, on Flagyl and Rocephin IV continue , seen by covering for , NPO, IVF. pain meds morphine prn, reduced the dose , morphine to 1gm q12h. will check with GI whether to start the patient on clear liquid diet.. # Hx of asthma stable; patient doesn't take any meds. DVT ppx with Heparin sq GI ppx with Pepcid BID Visit type - Emergency Visit Emergency Visit: Yes ED Registration Date: 08/11/17 Care time: The patient presented to the Emergency Department on the above date and was hospitalized for further evaluation of their emergent condition. - New Patient This patient is new to me today: No - Critical Care Critical Care patient: No
--- NOTE | 2017-08-13 20:29 | CONSULT ---
- Consultation REQUESTING PROVIDER: Helena GARCIA CONSULT REQUEST: We have been asked to surgically evaluate this patient for ( specify). PCP:Farhan Malik HISTORY OF PRESENT ILLNESS:CTSP for sudden onset of LLQ pain that started some 24 hours prior to admission; she came to the ER for evaluation; pain sharp and unrelenting; no n/v; pain w/o radiation from LLQ; not made worse or better by anything; NOD; she feels better since admission. PMHx: none PSHx: C-S x 2 Home Medications Medication Instructions Recorded NK [No Known Home Medication] 08/11/17 Allergies Allergy/AdvReac Type Severity Reaction Status Date / Time No Known Allergies Allergy Verified 08/11/17 11:00 REVIEW OF SYSTEMS: CONSTITUTIONAL: Absent: fever, chills, diaphoresis, generalized weakness, malaise, loss of appetite, weight change CARDIOVASCULAR: Absent: chest pain, syncope, palpitations, irregular heart rate, lightheadedness , peripheral edema RESPIRATORY: Absent: cough, shortness of breath, dyspnea with exertion, wheezing, stridor, hemoptysis GASTROINTESTINAL: Absent: abdominal pain, abdominal distension, nausea, vomiting, diarrhea, constipation, melena, hematochezia GENITOURINARY: Absent: dysuria, frequency, urgency, hesitancy, hematuria, flank pain, genital pain MUSCULOSKELETAL: Absent: myalgia, arthralgia, joint swelling, back pain, neck pain SKIN: Absent: rash, itching, pallor HEMATOLOGIC/IMMUNOLOGIC: Absent: easy bleeding, easy bruising, lymphadenopathy NEUROLOGIC: Absent: headache, focal weakness, paresthesias, dizziness, unsteady gait, seizure, mental status changes, bladder or bowel incontinence PSYCHIATRIC: Absent: anxiety, depression, suicidal or homicidal ideation, hallucinations. PHYSICAL EXAM: GENERAL: Awake, alert, and fully oriented, in no acute distress. HEAD: Normal with no signs of trauma. EYES: sclera anicteric, conjunctiva clear. NECK: Normal ROM, supple without lymphadenopathy, JVD, or masses. ABDOMEN: Soft, slight LLQ tenderness, not distended, normoactive bowel sounds, no guarding, no rebound, no masses. No organomegaly. No hernias MUSCULOSKELETAL: Normal ROM at all joints. No bony deformities or tenderness. No CVA tenderness. UPPER EXTREMITIES: 2+ pulses, warm, well-perfused. No cyanosis. Cap refill <2 seconds. No peripheral edema. LOWER EXTREMITIES: 2+ pulses, warm, well-perfused. No calf tenderness. No peripheral edema. NEUROLOGICAL: Normal speech, gait not observed. PSYCH: Cooperative. Good eye contact. Appropriate mood and affect. SKIN: Warm, dry, normal turgor, no rashes or lesions noted. Vital Signs Temperature 98.6 F 08/13/17 14:59 Pulse Rate 66 08/13/17 14:59 Respiratory Rate 19 08/13/17 14:59 Blood Pressure 137/71 08/13/17 14:59 O2 Sat by Pulse Oximetry (%) 98 08/13/17 08:52 Lab Results WBC 7.5 K/mm3 (4.0-10.0) 08/13/17 07:00 RBC 3.82 M/mm3 (3.60-5.2) 08/13/17 07:00 Hgb 11.8 GM/dL (10.7-15.3) 08/13/17 07:00 Hct 34.6 % (32.4-45.2) 08/13/17 07:00 MCV 90.7 fl (80-96) 08/13/17 07:00 MCHC 34.1 g/dl (32.0-36.0) 08/13/17 07:00 RDW 12.8 % (11.6-15.6) 08/13/17 07:00 Plt Count 184 K/MM3 (134-434) 08/13/17 07:00 Sodium 141 mmol/L (136-145) 08/13/17 07:00 Potassium 4.1 mmol/L (3.5-5.1) D 08/13/17 07:00 Chloride 109 mmol/L (98-107) H 08/13/17 07:00 Carbon Dioxide 26 mmol/L (21-32) 08/13/17 07:00 Anion Gap 6 (8-16) L 08/13/17 07:00 BUN 8 mg/dL (7-18) D 08/13/17 07:00 Creatinine 0.5 mg/dL (0.55-1.02) L 08/13/17 07:00 Random Glucose 112 mg/dL (74-106) H 08/13/17 07:00 Calcium 8.2 mg/dL (8.5-10.1) L 08/13/17 07:00 INR 1.41 (0.82-1.09) H 08/12/17 07:30 CT a/p reviewed; GI consult reviewed IMP: diverticulitis w/o perforation and or abscess formation. PLAN: Continue present tx.; will f/u; d/w patient possible reasons for surgery now and/or in the future. Elvis Espinoza MD FACS Visit type - Case Type Case Type: ED Admission - Emergency Emergency Visit: Yes ED Registration Date: 08/11/17 Care time: The patient presented to the Emergency Department on the above date and was hospitalized for further evaluation of their emergent condition. - New patient This patient is new to me today: Yes Date on this admission: 08/13/17 - Critical Care Critical Care patient: No
[2017-08-13] MEDS: SODIUM CHLORIDE 1,000 ML IV SCH (20:30)
[2017-08-13] MEDS ORDERED: PT OWN MED DRAWER 7, Y5N ONE (21:04)
[2017-08-13] MEDS: SENNOSIDES/DOCUSATE COMBO (SENNA PLUS) TABLET (UD) PO SCH (21:09)
[2017-08-14] MEDS: METRONIDAZOLE 500 MG PREMIXED 500 MG/100 ML MG IVPB SCH ×5 (02:49→20:40)
[2017-08-14] MEDS: HEPARIN NA (PORCINE) 5,000 UNITS/ML 1ML VIAL SQ SCH ×3 (06:18→22:43)
[2017-08-14] MEDS: SODIUM CHLORIDE 1,000 ML IV SCH ×2 (06:18→16:56)
[2017-08-14] MEDS ORDERED: PT OWN MED DRAWER 7, Y5N ONE (10:16)
--- NOTE | 2017-08-14 10:18 | PN ---
Teaching Attending Note Name of Resident: Brooke Eli ATTENDING PHYSICIAN STATEMENT I saw and evaluated the patient. I reviewed the resident's note and discussed the case with the resident. I agree with the resident's findings and plan as documented. SUBJECTIVE: Feels much better. denies any pain. OBJECTIVE: Vital Signs Temperature 98.3 F 08/14/17 08:09 Pulse Rate 93 H 08/14/17 08:09 Respiratory Rate 16 08/14/17 08:09 Blood Pressure 127/67 08/14/17 08:09 O2 Sat by Pulse Oximetry (%) 98 08/13/17 08:52 CBCD WBC 7.5 K/mm3 (4.0-10.0) 08/13/17 07:00 RBC 3.82 M/mm3 (3.60-5.2) 08/13/17 07:00 Hgb 11.8 GM/dL (10.7-15.3) 08/13/17 07:00 Hct 34.6 % (32.4-45.2) 08/13/17 07:00 MCV 90.7 fl (80-96) 08/13/17 07:00 MCHC 34.1 g/dl (32.0-36.0) 08/13/17 07:00 RDW 12.8 % (11.6-15.6) 08/13/17 07:00 Plt Count 184 K/MM3 (134-434) 08/13/17 07:00 MPV 9.5 fl (7.5-11.1) 08/13/17 07:00 CMP Sodium 141 mmol/L (136-145) 08/13/17 07:00 Potassium 4.1 mmol/L (3.5-5.1) D 08/13/17 07:00 Chloride 109 mmol/L (98-107) H 08/13/17 07:00 Carbon Dioxide 26 mmol/L (21-32) 08/13/17 07:00 Anion Gap 6 (8-16) L 08/13/17 07:00 BUN 8 mg/dL (7-18) D 08/13/17 07:00 Creatinine 0.5 mg/dL (0.55-1.02) L 08/13/17 07:00 Creat Clearance w eGFR > 60 (>60) 08/13/17 07:00 Random Glucose 112 mg/dL (74-106) H 08/13/17 07:00 Calcium 8.2 mg/dL (8.5-10.1) L 08/13/17 07:00 Total Bilirubin 0.5 mg/dL (0.2-1.0) D 08/13/17 07:00 AST 11 U/L (15-37) L 08/13/17 07:00 ALT 16 U/L (12-78) D 08/13/17 07:00 Alkaline Phosphatase 66 U/L (45-117) D 08/13/17 07:00 Total Protein 6.5 g/dl (6.4-8.2) 08/13/17 07:00 Albumin 3.2 g/dl (3.4-5.0) L D 08/13/17 07:00 Current Medications Generic Name Dose Route Start Last Admin Trade Name Freq PRN Reason Stop Dose Admin Acetaminophen 325 mg 08/12/17 12:48 08/12/17 14:16 Tylenol - PO 325 mg Q4H PRN Administration FEVER OR PAIN Heparin Sodium (Porcine) 5,000 unit 08/11/17 22:00 08/14/17 06:18 Heparin - SQ 5,000 unit TID SYLVIA Administration Metronidazole 500 mg in 100 mls @ 100 mls/hr 08/11/17 17:30 08/14/17 02:49 Flagyl 500mg Premixed Ivpb - IVPB 100 mls/hr Q6H-IV SYLVIA Administration CEFTRIAXONE 1 G/50 ML PREMIX 50 mls @ 100 mls/hr 08/12/17 02:00 08/13/17 10: 15 Ceftriaxone 1 Gm-D5w Bag IVPB 100 mls/hr DAILY SYLVIA Administration Famotidine 20 mg in 12 mls @ 144 mls/hr 08/11/17 22:00 08/13/17 21:09 Pepcid 20 Mg/12 Ml Push IVPUSH 144 mls/hr BID SYLVIA Administration Sodium Chloride 1,000 mls @ 125 mls/hr 08/13/17 22:30 08/14/17 06:18 Normal Saline - IV 125 mls/hr ASDIR SYLVIA Administration Morphine Sulfate 1 mg 08/13/17 09:58 Morphine Sulfate IVPUSH Q12H PRN PAIN Senna/Docusate Sodium 1 tablet 08/13/17 22:00 08/13/17 21:09 Pericolace - PO 1 tablet HS SYLVIA Administration Home Medications Medication Instructions Recorded NK [No Known Home Medication] 08/11/17 PE: no abdominal tenderness rest of PE per resident's note CT Ab/Pelvis: Acute sigmoid diverticulitis with small volume of free fluid, sans evidence of perforation. No drainable collection at this time. Mild hepatomegaly and hepatic steatosis. 1.9 x 1.6 cm Right adnexal cystic lesion. ASSESSMENT/PLAN: 46yo F with PMH of asthma presents with severe sue lower quadrant abdominal pain , found to have acute sigmoid diverticulitis, admitted to Med-Surg. # Acute diverticulitis ; Leukocytosis improved back to normal , on Flagyl and Rocephin IV continue , on clear liquid diet now , will advance the diet as tolerated , possible discharge in am .. # Hx of asthma stable; patient doesn't take any meds. DVT ppx with Heparin sq GI ppx with Pepcid BID
[2017-08-14] MEDS: FAMOTIDINE IV 20 MG/12 ML VIAL IVPUSH SCH ×2 (10:54→22:43)
--- NOTE | 2017-08-14 11:45 | PN ---
Progress Note (short form) - Note Progress Note: Attending Surgeon No c/o; tolerated diet VSS AF abdomen-soft; non tender WBC-wnl IMP: diverticulitis PLAN: Continue present tx; advance diet as tolerated; consider repeat imaging prior to discharge. Elvis Espinoza MD FACS
--- NOTE | 2017-08-14 11:54 | PN ---
Progress Note, Physician History of Present Illness: No events. Ambulating. Pain free. Discussed with pt's nurse - Current Medication List Current Medications: Active Medications Acetaminophen (Tylenol -) 325 mg PO Q4H PRN PRN Reason: FEVER OR PAIN Last Admin: 08/12/17 14:16 Dose: 325 mg Heparin Sodium (Porcine) (Heparin -) 5,000 unit SQ TID [facility] Last Admin: 08/14/17 06:18 Dose: 5,000 unit Metronidazole (Flagyl 500mg Premixed Ivpb -) 500 mg in 100 mls @ 100 mls/hr IVPB Q6H-IV SYLVIA Last Admin: 08/14/17 10:26 Dose: 100 mls/hr CEFTRIAXONE 1 G/50 ML PREMIX (Ceftriaxone 1 Gm-D5w Bag) 50 mls @ 100 mls/hr IVPB DAILY [facility] Last Admin: 08/13/17 10:15 Dose: 100 mls/hr Famotidine (Pepcid 20 Mg/12 Ml Push) 20 mg in 12 mls @ 144 mls/hr IVPUSH BID [facility] Last Admin: 08/14/17 10:54 Dose: 144 mls/hr Sodium Chloride (Normal Saline -) 1,000 mls @ 125 mls/hr IV ASDIR SYLVIA Last Admin: 08/14/17 06:18 Dose: 125 mls/hr Morphine Sulfate (Morphine Sulfate) 1 mg IVPUSH Q12H PRN PRN Reason: PAIN Senna/Docusate Sodium (Pericolace -) 1 tablet PO HS [facility] Last Admin: 08/13/17 21:09 Dose: 1 tablet - Objective Vital Signs: Vital Signs Temperature 98.3 F 08/14/17 08:09 Pulse Rate 93 H 08/14/17 08:09 Respiratory Rate 16 08/14/17 08:09 Blood Pressure 127/67 08/14/17 08:09 O2 Sat by Pulse Oximetry (%) 98 08/13/17 08:52 Constitutional: Yes: No Distress, Calm Gastrointestinal: Yes: Soft. No: Tenderness Neurological: Yes: Alert Labs: CBC, BMP 08/13/17 07:00 08/13/17 07:00 INR, PTT INR 1.41 (0.82-1.09) H 08/12/17 07:30 Problem List - Problems (1) Diverticulosis Code(s): K57.90 - DVRTCLOS OF INTEST, PART UNSP, W/O PERF OR ABSCESS W/O BLEED (2) Diverticulitis Code(s): K57.92 - DVTRCLI OF INTEST, PART UNSP, W/O PERF OR ABSCESS W/O BLEED Assessment/Plan Continue current care Low residual diet Colonoscopy in 6-8 weeks
[2017-08-14] MEDS: CEFTRIAXONE 1 G/50 ML PREMIX 50 ML IVPB SCH (11:55)
--- NOTE | 2017-08-14 20:30 | PN ---
Physical Exam: SUBJECTIVE: Patient seen and examined. Pt denies chest pain, abdominal pain, sob, headache, fever, chills. Pt is feeling better. No events overnight. OBJECTIVE: Vital Signs Period Temp Pulse Resp BP Sys/Flannery Pulse Ox Last 24 Hr 97.4 F-99.2 F 66-93 16-20 118-140/67-81 98 GENERAL: Awake, alert, and fully oriented, in no acute distress. LUNGS: Breath sounds equal, clear to auscultation bilaterally. No wheezes, and no crackles. No accessory muscle use. HEART: Regular rate and rhythm, normal S1 and S2 without murmur, rub or gallop. ABDOMEN: Soft, nontender, not distended, normoactive bowel sounds, no guarding. LOWER EXTREMITIES: Warm, well-perfused. No calf tenderness. No peripheral edema. PSYCHIATRIC: Cooperative. Good eye contact. Appropriate mood and affect. SKIN: Warm, dry, normal turgor, no rashes or lesions noted, normal capillary refill. Active Medications Generic Name Dose Route Start Last Admin Trade Name Freq PRN Reason Stop Dose Admin Acetaminophen 325 mg 08/12/17 12:48 08/12/17 14:16 Tylenol - PO 325 mg Q4H PRN Administration FEVER OR PAIN Heparin Sodium (Porcine) 5,000 unit 08/11/17 22:00 08/14/17 14:23 Heparin - SQ 5,000 unit TID SYLVIA Administration Metronidazole 500 mg in 100 mls @ 100 mls/hr 08/11/17 17:30 08/14/17 14:24 Flagyl 500mg Premixed Ivpb - IVPB 100 mls/hr Q6H-IV SYLVIA Administration CEFTRIAXONE 1 G/50 ML PREMIX 50 mls @ 100 mls/hr 08/12/17 02:00 08/14/17 11: 55 Ceftriaxone 1 Gm-D5w Bag IVPB 100 mls/hr DAILY SYLVIA Administration Famotidine 20 mg in 12 mls @ 144 mls/hr 08/11/17 22:00 08/14/17 10:54 Pepcid 20 Mg/12 Ml Push IVPUSH 144 mls/hr BID SYLVIA Administration Sodium Chloride 1,000 mls @ 125 mls/hr 08/13/17 22:30 08/14/17 16:56 Normal Saline - IV 125 mls/hr ASDIR SYLVIA Administration Morphine Sulfate 1 mg 08/13/17 09:58 Morphine Sulfate IVPUSH Q12H PRN PAIN Senna/Docusate Sodium 1 tablet 08/13/17 22:00 08/13/17 21:09 Pericolace - PO 1 tablet HS SYLVIA Administration ASSESSMENT/PLAN: 46yo F with PMH of asthma presents with severe sue lower quadrant abdominal pain , found to have acute sigmoid diverticulitis, admitted to Med-Surg. # diverticulitis - monitor leukocytosis - GI (Dr. Crowder) recs appreciated: low residual diet, f/u colonoscopy in 6-8 weeks - Surgery (Dr. Espinoza) recs appreciated - Day 4 of IV Ceftriaxone and IV Flagyl - pain control with Morphine and Tylenol prn # asthma - inactive # FEN - Fluids: NS @ 125 ml/hr - Electrolytes: continue to monitor - Nutrition: full liquids # Prophylaxis - DVT ppx with Heparin TID - GI ppx with Pepcid BID Visit type - Emergency Visit Emergency Visit: Yes ED Registration Date: 08/11/17 Care time: The patient presented to the Emergency Department on the above date and was hospitalized for further evaluation of their emergent condition. - New Patient This patient is new to me today: No - Critical Care Critical Care patient: No
[2017-08-14] MEDS: SENNOSIDES/DOCUSATE COMBO (SENNA PLUS) TABLET (UD) PO SCH (22:41)
[2017-08-15 00:11] VITALS: TEMP 98
[2017-08-15] MEDS: METRONIDAZOLE 500 MG PREMIXED 500 MG/100 ML MG IVPB SCH ×2 (02:17→12:19)
[2017-08-15] MEDS: SODIUM CHLORIDE 1,000 ML IV SCH (04:27)
[2017-08-15] MEDS: HEPARIN NA (PORCINE) 5,000 UNITS/ML 1ML VIAL SQ SCH ×2 (06:27→14:17)
[2017-08-15 08:43] VITALS: BP 120/71; PULSE 64
--- NOTE | 2017-08-15 08:46 | PN ---
Progress Note (short form) - Note Progress Note: Resting comfortably without complaint. Tolerating liquid diet. Ambulating without assistance. Voiding spontaneously. Having formed bm's (non-bloody). Denies n/v/f/c, CP or SOB. Last Vital Signs Temp Pulse Resp BP Pulse Ox 98 F 64 18 120/71 98 08/15/17 08:00 08/15/17 08:00 08/15/17 08:00 08/15/17 08:00 08/14/17 21:00 Gen: alert. nad ABd: obese. Soft. NT. ND. Problem List - Problems (1) Diverticulitis Assessment/Plan: 46 yo female admitted with acute sigmoid diverticulitis without evidence of perforation. Low residue diet Per GI --> colonoscopy in 6-8 weeks as out-patient No surgical intervention Cont medical management On behalf of Dr. Espinoza, thank you for the opportunity to participate in your patient's care. Code(s): K57.92 - DVTRCLI OF INTEST, PART UNSP, W/O PERF OR ABSCESS W/O BLEED
[2017-08-15 09:56] LABS: CHLORIDE 108 mmol/L (98-107); POTASSIUM 3.8 mmol/L (3.5-5.1); SODIUM 141 mmol/L (136-145)
[2017-08-15] MEDS ORDERED: PT OWN MED DRAWER 7, Y5N ONE (10:03)
[2017-08-15] MEDS: FAMOTIDINE IV 20 MG/12 ML VIAL IVPUSH SCH (10:07)
[2017-08-15] MEDS: CEFTRIAXONE 1 G/50 ML PREMIX 50 ML IVPB SCH (10:07)
[2017-08-15 10:14] LABS: ANION GAP 9 (8-16); BLOOD UREA NITROGEN 7 mg/dL (7-18); CALCIUM 8.2 mg/dL (8.5-10.1); CO2 24 mmol/L (21-32); CREATININE 0.5 mg/dL (0.55-1.02); GLUCOSE,RANDOM 88 mg/dL (74-106); MAGNESIUM 2.1 mg/dL (1.8-2.4); PHOSPHOROUS 3.2 mg/dL (2.5-4.9)
--- NOTE | 2017-08-15 10:52 | DS ---
Physical Exam: SUBJECTIVE: Patient seen and examined. Pt is feeling better today, tolerating low residue diet, and is ready for discharge home. Pt denies abdominal pain, chest pain, sob, headache, fever, chills. No events overnight. OBJECTIVE: Vital Signs Period Temp Pulse Resp BP Sys/Flannery Pulse Ox Last 24 Hr 98 F-98.5 F 63-68 18-20 118-132/69-84 98 PHYSICAL EXAM GENERAL: Awake, alert, and fully oriented, in no acute distress. LUNGS: Breath sounds equal, clear to auscultation bilaterally. No wheezes, and no crackles. No accessory muscle use. HEART: Regular rate and rhythm, normal S1 and S2 without murmur, rub or gallop. ABDOMEN: Soft, nontender, not distended, normoactive bowel sounds, no guarding. LOWER EXTREMITIES: Warm, well-perfused. No calf tenderness. No peripheral edema. PSYCHIATRIC: Cooperative. Good eye contact. Appropriate mood and affect. SKIN: Warm, dry, normal turgor, no rashes or lesions noted, normal capillary refill. LABS Laboratory Results - last 24 hr 08/15/17 07:45 Sodium 141 Potassium 3.8 Chloride 108 H Carbon Dioxide 24 Anion Gap 9 BUN 7 Creatinine 0.5 L Random Glucose 88 D Calcium 8.2 L Phosphorus 3.2 D Magnesium 2.1 HOSPITAL COURSE: Date of Admission:08/11/17 Date of Discharge: 08/15/17 46yo F with PMH of asthma presents with severe sue lower quadrant abdominal pain , found to have acute sigmoid diverticulitis, admitted to Med-Surg. Pt received 5 days of IV antibiotics and was discharged with 9 days of additional po antibiotics (Flagyl and Ceftin). Pt's hospital course was uneventful. Pt seen by GI (Dr. Crowder), who recommends f/u in 6-8 weeks for a colonoscopy and to maintain a low residue diet. 08/11/17 Ab/Pel CT -> (1) acute sigmoid diverticulitis with small volume of free fluid, sans evidence of perforation. No drainable collection at this time. (2 ) Mild hepatomegaly. Hepatic steatosis. (3) 1.9 x 1.6 cm Right adnexal cystic lesion. Pt is stable for discharge home. Minutes to complete discharge: 35 Discharge Summary Reason For Visit: DIVERTICULITIS Current Active Problems Constipated (Acute) Diverticulitis (Acute) Condition: Improved - Instructions Diet, Activity, Other Instructions: You were treated for diverticulitis in the hospital with IV antibiotics from 08/11 - 08/15. Complete your course of antibiotics at home for an additional 10 days, until Follow-up: - your primary care doctor at [address] [place] [address] in one week for post-hospital discharge - Dr. Crowder, GI doctor, in one week for further evaluation of your diverticulitis. You will need a colonoscopy in 6-8 weeks. Medications: Complete your course of antibiotics at home for an additional 2 days. Take Metronidazole 1 500mg tablet every 8 hours, next dose will be 6pm tonight. Take Ceftin 1 500mg tablet twice daily every day. Your last dose will be 08/25/2017. Diet: Eat a low residue diet, limit high-fiber foods, like whole-grain breads and cereals, nuts, seeds, raw or dried fruits. Eat well cooked vegetables Referrals: Aleksandar Crowder MD [Staff Physician] - Disposition: HOME - Home Medications Comprehensive Discharge Medication List: Ambulatory Orders Acetaminophen [Tylenol .Regular Strength -] 325 mg PO Q4H PRN tablet 08/15/17 Cefuroxime Axetil [Ceftin -] 500 mg PO Q12H #18 tablet 08/15/17 Metronidazole [Flagyl -] 500 mg PO TID #27 tablet 08/15/17 This patient is new to me today: No Emergency Visit: Yes ED Registration Date: 08/11/17 Care time: The patient presented to the Emergency Department on the above date and was hospitalized for further evaluation of their emergent condition. Critical Care patient: No - Discharge Referral Referred to [facility] Med P.C.: No
--- NOTE | 2017-08-15 19:30 | PN ---
Teaching Attending Note Name of Resident: Brooke Eli ATTENDING PHYSICIAN STATEMENT I saw and evaluated the patient. I reviewed the resident's note and discussed the case with the resident. I agree with the resident's findings and plan as documented. SUBJECTIVE: Patient feels comfortable with no acute distress. No abdominal pain. Pain free at this time, tolerating diet well. Vital Signs Temperature 98 F 08/15/17 08:00 Pulse Rate 64 08/15/17 08:00 Respiratory Rate 18 08/15/17 08:00 Blood Pressure 120/71 08/15/17 08:00 O2 Sat by Pulse Oximetry (%) 97 08/15/17 09:00 CBCD WBC 7.5 K/mm3 (4.0-10.0) 08/13/17 07:00 RBC 3.82 M/mm3 (3.60-5.2) 08/13/17 07:00 Hgb 11.8 GM/dL (10.7-15.3) 08/13/17 07:00 Hct 34.6 % (32.4-45.2) 08/13/17 07:00 MCV 90.7 fl (80-96) 08/13/17 07:00 MCHC 34.1 g/dl (32.0-36.0) 08/13/17 07:00 RDW 12.8 % (11.6-15.6) 08/13/17 07:00 Plt Count 184 K/MM3 (134-434) 08/13/17 07:00 MPV 9.5 fl (7.5-11.1) 08/13/17 07:00 CMP Sodium 141 mmol/L (136-145) 08/15/17 07:45 Potassium 3.8 mmol/L (3.5-5.1) 08/15/17 07:45 Chloride 108 mmol/L (98-107) H 08/15/17 07:45 Carbon Dioxide 24 mmol/L (21-32) 08/15/17 07:45 Anion Gap 9 (8-16) 08/15/17 07:45 BUN 7 mg/dL (7-18) 08/15/17 07:45 Creatinine 0.5 mg/dL (0.55-1.02) L 08/15/17 07:45 Creat Clearance w eGFR > 60 (>60) 08/13/17 07:00 Random Glucose 88 mg/dL (74-106) D 08/15/17 07:45 Calcium 8.2 mg/dL (8.5-10.1) L 08/15/17 07:45 Total Bilirubin 0.5 mg/dL (0.2-1.0) D 08/13/17 07:00 AST 11 U/L (15-37) L 08/13/17 07:00 ALT 16 U/L (12-78) D 08/13/17 07:00 Alkaline Phosphatase 66 U/L (45-117) D 08/13/17 07:00 Total Protein 6.5 g/dl (6.4-8.2) 08/13/17 07:00 Albumin 3.2 g/dl (3.4-5.0) L D 08/13/17 07:00 Home Medications Medication Instructions Recorded Acetaminophen [Tylenol .Regular 325 mg PO Q4H PRN tablet 08/15/17 Strength -] Cefuroxime Axetil [Ceftin -] 500 mg PO Q12H #18 tablet 08/15/17 Metronidazole [Flagyl -] 500 mg PO TID #27 tablet 08/15/17 PE: no abdominal tenderness rest of PE per resident's note CT Ab/Pelvis: Acute sigmoid diverticulitis with small volume of free fluid, sans evidence of perforation. No drainable collection at this time. Mild hepatomegaly and hepatic steatosis. 1.9 x 1.6 cm Right adnexal cystic lesion. ASSESSMENT/PLAN: 46yo F with PMH of asthma presents with severe sue lower quadrant abdominal pain , found to have acute sigmoid diverticulitis, admitted to Med-Surg. # Acute diverticulitis ; Leukocytosis improved back to normal , will discharge patient on Flagyl and ceftin po 500mg bid x 9 days , continue low fiber diet. follow up with Dr. Crowder in 6-8 weeks for colonscopy. # Hx of asthma stable; patient doesn't take any meds. Low residue diet Per GI --> colonoscopy in 6-8 weeks as out-patient No surgical intervention
== END 2017-08-15 15:00 | disposition home or self-care (01) | DRG 244 ==
LOC: JER 10:45 → JERBED 16:07 → J6S 18:23
PROVIDERS: ADMIT Internal Medicine; ATTEND Internal Medicine
DX: K57.92 Diverticulitis of intestine, part unspecified, without perforation or abscess without bleeding (principal); J45.909 Unspecified asthma, uncomplicated; K76.0 Fatty (change of) liver, not elsewhere classified; K59.00 Constipation, unspecified; R16.0 Hepatomegaly, not elsewhere classified; D72.829 Elevated white blood cell count, unspecified
CPT/HCPCS: 36415; 74177-TC; 80048; 80053; 81003; 83690; 83735; 84100; 84703; 85025; 85027; 85610; 85730; 87086; 90688; 99283-25; G0008; J1644

== ENCOUNTER 2017-11-22 18:48 | Emergency (ER) | payer OTHER ==
[2017-11-22] MEDS ORDERED: ALBUTEROL SO4 2.5/IPRATROPIUM 0.5 INH SOL 3 ML VIAL.NEB. NEB ONE ×3 (18:57→20:13)
--- NOTE | 2017-11-22 18:59 | PDOC ---
Rapid Medical Evaluation Time Seen by Provider: 11/22/17 18:52 Medical Evaluation: Allergies Allergy/AdvReac Type Severity Reaction Status Date / Time No Known Allergies Allergy Verified 11/22/17 18:53 11/22/17 18:57 The patient presents with a chief complaint of: cough I have performed a brief in-person evaluation of this patient. Pertinent physical exam findings: vss, wheezing, htn I have ordered the following: ekg, duoneb The patient will proceed to the ED for further evaluation.
[2017-11-22 19:11] VITALS: TEMP 98.5; BMI 29.2
[2017-11-22] MEDS ORDERED: predniSONE 20 MG TABLET (UD) PO ONE (19:39)
--- NOTE | 2017-11-22 19:40 | PDOC ---
History of Present Illness - General Chief Complaint: Respiratory Stated Complaint: COUGHING/WHEEZING Time Seen by Provider: 11/22/17 18:52 History Source: Patient - History of Present Illness Timing/Duration: reports: week Associated Symptoms: reports: chest pain/soreness, cough, shortness of breath, wheezing. denies: fever/chills Past History - Past Medical History Allergies/Adverse Reactions: Allergies Allergy/AdvReac Type Severity Reaction Status Date / Time No Known Allergies Allergy Verified 11/22/17 18:53 Home Medications: Ambulatory Orders Albuterol 0.083% Nebulizer Vangie [Ventolin 0.083%] 1 neb NEB Q4H 11/22/17 Albuterol Sulfate Inhaler - [Ventolin HFA Inhaler -] 1 - 2 inh PO Q4H #1 inhaler 11/22/17 predniSONE [Deltasone -] 40 mg PO DAILY #8 tablet 11/22/17 Anemia: No Asthma: Yes Cancer: No Cardiac Disorders: No CVA: No COPD: No CHF: No Dementia: No Diabetes: No GI Disorders: No Disorders: No HTN: Yes Hypercholesterolemia: No Liver Disease: No Seizures: No Thyroid Disease: No - Surgical History Abdominal Surgery: No Appendectomy: No Cardiac Surgery: No Cholecystectomy: No Lung Surgery: No Neurologic Surgery: No - Suicide/Smoking/Psychosocial Hx Smoking Status: No Smoking History: Never smoked Have you smoked in the past 12 months: No Number of Cigarettes Smoked Daily: 0 Hx Alcohol Use: No Drug/Substance Use Hx: No Substance Use Type: None Review of Systems - Review of Systems Constitutional: No: Chills, Fever Respiratory: Yes: Cough, Shortness of Breath, Wheezing Cardiac (ROS): Yes: Chest Pain *Physical Exam - Vital Signs Last Vital Signs Temp Pulse Resp BP Pulse Ox 98.5 F 82 19 164/105 95 11/22/17 18:53 11/22/17 18:53 11/22/17 18:53 11/22/17 18:53 11/22/17 18:53 - Physical Exam General Appearance: Yes: Appropriately Dressed. No: Apparent Distress HEENT: positive: Normal ENT Inspection, Normal Voice. negative: Scleral Icterus (R), Scleral Icterus (L) Neck: positive: Supple. negative: Lymphadenopathy (R), Lymphadenopathy (L) Respiratory/Chest: positive: Wheezing. negative: Respiratory Distress Cardiovascular: positive: Regular Rate, S1, S2 Integumentary: positive: Dry, Warm Neurologic: positive: Fully Oriented, Alert, Normal Mood/Affect ED Treatment Course - Medications Given in the ED: ED Medications Discontinued Medications Generic Name Dose Route Start Last Admin Trade Name Chari PRN Reason Stop Dose Admin Albuterol/Ipratropium 1 amp 11/22/17 18:57 11/22/17 19:05 Duoneb - NEB 11/22/17 18:58 1 amp ONCE ONE Administration Medical Decision Making - Medical Decision Making 11/22/17 19:41 47 yo F, h/o asthma, no recent admissions and no intubations using use only nebulizer machine at home per patient, here with nonproductive cough with chest tightness and possible shortness of breath 1 week. Using nebulizers at home with no significant relief. Denies any fever or chills. See exam URI w/ asthma Hypertensive in ED but stable otherwise w/ diffuse wheezing EKG done at triage and normal as signed off by ED attg -nebs -prednisone -reassess 11/22/17 21:08 Pt sig improved w/ nebs. Chest/lungs clear on reassessment and able to ambulate without SOB. Will dc w/ pred burst and rx for alb pump. BP persistently elevated in ED. Pt denies BEST, dizziness, visual changes, focal weakness and no CP or SOB at this time. Prior BP readings have been better based on chart review. Pt does not carry a dx of HTN. Pt instructed to f/u with PMD tomorrow w / strict return precautions given 11/22/17 21:16 *DC/Admit/Observation/Transfer Diagnosis at time of Disposition: Elevated blood pressure reading URI (upper respiratory infection) Qualifiers: URI type: unspecified URI Qualified Code(s): J06.9 - Acute upper respiratory infection, unspecified Asthma exacerbation Qualifiers: Asthma severity: unspecified severity Asthma persistence: unspecified Qualified Code(s): J45.901 - Unspecified asthma with (acute) exacerbation - Discharge Dispostion Disposition: HOME Condition at time of disposition: Improved - Prescriptions Prescriptions: Albuterol Sulfate Inhaler - [Ventolin HFA Inhaler -] 1 - 2 inh PO Q4H #1 inhaler predniSONE [Deltasone -] 40 mg PO DAILY #8 tablet - Referrals - Patient Instructions Printed Discharge Instructions: Asthma -- Adult, DI for High Blood Pressure Additional Instructions: You have a viral URI that triggered her asthma. Start taking prednisone tomorrow as instructed. Use albuterol pump as directed as rescue inhaler for shortness of breath/ wheezing Your blood pressure was elevated in ED to 160s/100s. You need to contact your PMD tomorrow Return to ED for headache, visual changes, focal weakness, chest pain or sob - Post Discharge Activity
[2017-11-22] MEDS ORDERED: predniSONE 20 MG TABLET (UD) ONE (19:42)
[2017-11-22 20:49] VITALS: PULSE 78
[2017-11-22 21:10] VITALS: BP 162/105
--- NOTE | 2017-11-23 08:23 | EKG ---
Test Reason : Blood Pressure : / mmHG Vent. Rate : 072 BPM Atrial Rate : 072 BPM P-R Int : 126 ms QRS Dur : 086 ms QT Int : 390 ms P-R-T Axes : 011 047 048 degrees QTc Int : 427 ms NORMAL SINUS RHYTHM NORMAL ECG WHEN COMPARED WITH ECG OF 18-APR-2014 10:36, NO SIGNIFICANT CHANGE WAS FOUND Confirmed by MICHELLE ESCUDERO MD ([id number]) on 11/23/2017 8:23:40 AM Referred By: Confirmed By:MICHELLE ESCUDERO MD
== END 2017-11-22 21:21 | disposition home or self-care (01) ==
LOC: JER 18:48 → JERFT 18:48
PROC: 3E0F7GC Introduction of Other Therapeutic Substance into Respiratory Tract, Via Natural or Artificial Opening (ICD-10-PCS; principal; 2017-11-22)
DX: Z01.31 Encounter for examination of blood pressure with abnormal findings (principal); J06.9 Acute upper respiratory infection, unspecified; J45.901 Unspecified asthma with (acute) exacerbation
CPT/HCPCS: 93005; 93010; 94640; 99281-25

== ENCOUNTER 2017-12-17 10:41 | Emergency (ER) | payer OTHER ==
[2017-12-17 11:02] VITALS: BP 160/90; PULSE 90; TEMP 99; BMI 30.9
[2017-12-17] MEDS ORDERED: ALBUTEROL SO4 2.5/IPRATROPIUM 0.5 INH SOL 3 ML VIAL.NEB. NEB ONE (11:41)
[2017-12-17] MEDS ORDERED: IBUPROFEN 600 MG TABLET (FP) PO ONE ×2 (11:41→11:47)
--- NOTE | 2017-12-17 12:01 | PDOC ---
History of Present Illness - General Chief Complaint: Sore Throat Stated Complaint: SORE THROAT Time Seen by Provider: 12/17/17 11:27 History Source: Patient Exam Limitations: No Limitations - History of Present Illness Initial Comments: 12/17/17 12:03 47-year-old female with past medical history of asthma presents to the ED with complaints of mild frontal headache, fever and chills although with sore throat and mild dry cough intimately for the past 4 days. Patient states took Motrin last night with good effect but since symptoms continued today she decided come to the ER. Patient states has not had to use her an albuterol inhaler and denies any chest pain, shortness of breath, abdominal pain nausea or vomiting. Patient denies recent travel or recent illness. Patient has no urinary or menstrual complaints. Timing/Duration: other (4 days) Severity: mild Associated Symptoms: reports: cough, fever/chills, headaches, weakness Past History - Travel Traveled outside of the country in the last 30 days: No - Past Medical History Allergies/Adverse Reactions: Allergies Allergy/AdvReac Type Severity Reaction Status Date / Time No Known Allergies Allergy Verified 12/17/17 11:31 Home Medications: Ambulatory Orders NK [No Known Home Medication] 12/17/17 Anemia: No Asthma: Yes Cancer: No Cardiac Disorders: No CVA: No COPD: No CHF: No Dementia: No Diabetes: No GI Disorders: No Disorders: No HTN: Yes Hypercholesterolemia: No Liver Disease: No Seizures: No Thyroid Disease: No - Surgical History Abdominal Surgery: No Appendectomy: No Cardiac Surgery: No Cholecystectomy: No Lung Surgery: No Neurologic Surgery: No - Suicide/Smoking/Psychosocial Hx Smoking Status: No Smoking History: Never smoked Have you smoked in the past 12 months: No Number of Cigarettes Smoked Daily: 0 Information on smoking cessation initiated: No Hx Alcohol Use: No Drug/Substance Use Hx: No Substance Use Type: None Patient Lives Alone: No Lives with/in: spouse/SO Review of Systems - Review of Systems Able to Perform ROS?: Yes Constitutional: Yes: Chills, Fever, Weakness HEENTM: Yes: Symptoms Reported, Throat Pain Respiratory: Yes: Cough Cardiac (ROS): No: Symptoms Reported ABD/GI: No: Symptoms Reported : No: Symptoms Reported Musculoskeletal: No: Symptoms Reported Integumentary: No: Symptoms Reported Neurological: Yes: Headache (mild frontal) *Physical Exam - Vital Signs Last Vital Signs Temp Pulse Resp BP Pulse Ox 99.0 F 90 16 160/90 100 12/17/17 10:56 12/17/17 10:56 12/17/17 10:56 12/17/17 10:56 12/17/17 10:56 - Physical Exam General Appearance: Yes: Nourished, Appropriately Dressed. No: Apparent Distress HEENT: positive: EOMI, PETAR, TMs Normal, Pharynx Normal (mild posterior soft palate) Neck: positive: Supple. negative: Lymphadenopathy (R), Lymphadenopathy (L) Respiratory/Chest: positive: Wheezing (expiratory bilateral at bases). negative : Respiratory Distress, Accessory Muscle Use Cardiovascular: positive: Regular Rhythm, Regular Rate. negative: Murmur Gastrointestinal/Abdominal: positive: Soft. negative: Tenderness Integumentary: positive: Normal Color, Warm, Moist Neurologic: positive: Motor Strength 5/5 (ambulatory) Medical Decision Making - Medical Decision Making 12/17/17 12:05 Patient here with URI complaints and on exam was noted to have bilateral expiratory wheezing likely due to mild exacerbation of asthma. Based on clinical presentation and exam, diagnoses to include: Viral syndrome, influenza, strep, asthma exacerbation Patient ordered for Motrin, rapid strep, influenza DuoNeb and will reevaluate shortly. 12/17/17 12:49 Repeat examination. Patient had no wheezing on lung exam. Patient states feeling better after receiving the Motrin. Patient with positive strep and will be treated with amoxicillin. *DC/Admit/Observation/Transfer Diagnosis at time of Disposition: Strep throat - Discharge Dispostion Disposition: HOME Condition at time of disposition: Good - Referrals - Patient Instructions Printed Discharge Instructions: DI for Strep Throat Additional Instructions: Please take antibiotics as prescribed and take Motrin 600 mg every 8 hours for discomfort. Eeat soft not abrasive foods and drink plenty of fluids. - Post Discharge Activity
== END 2017-12-17 12:55 | disposition home or self-care (01) ==
LOC: JER 10:41 → JERFT 10:41
PROC: 3E0F7GC Introduction of Other Therapeutic Substance into Respiratory Tract, Via Natural or Artificial Opening (ICD-10-PCS; principal; 2017-12-17)
DX: J02.0 Streptococcal pharyngitis (principal); B95.0 Streptococcus, group A, as the cause of diseases classified elsewhere; J45.901 Unspecified asthma with (acute) exacerbation
CPT/HCPCS: 87070; 87077; 87430; 87804; 94640; 99281-25

== ENCOUNTER 2018-08-31 15:59 | Emergency (ER) | payer OTHER ==
[2018-08-31 16:09] VITALS: BP 150/93; PULSE 78; TEMP 98.2; BMI 27.4
--- NOTE | 2018-08-31 16:09 | PDOC ---
Rapid Medical Evaluation Chief Complaint: Pain, Acute Time Seen by Provider: 08/31/18 16:05 Medical Evaluation: Allergies Allergy/AdvReac Type Severity Reaction Status Date / Time No Known Allergies Allergy Verified 08/31/18 16:05 08/31/18 16:06 I have performed a brief in-person evaluation of this patient. The patient presents with a chief complaint of:pain in both knees for 2 days no fever denies trauma no pmhx Pertinent physical exam findings:ttp bilateral knees, no redness or swelling I have ordered the following:none The patient will proceed to the ED for further evaluation.
[2018-08-31] MEDS ORDERED: KETOROLAC TROMETHAMINE 60 MG/2 ML VIAL IM ONE (16:43)
--- NOTE | 2018-08-31 16:46 | PDOC ---
History of Present Illness - General Chief Complaint: Pain, Acute Stated Complaint: KNEE PAIN Time Seen by Provider: 08/31/18 16:05 History Source: Patient Exam Limitations: No Limitations - History of Present Illness Initial Comments: 08/31/18 16:44 Best Contact: PCP:Denies Pmhx:Denies Pshx:: c sections Allergies:NKDA FH:0 Social Hx: Cigarettes/ 0 Alcohol/ 0 Drugs/0 47-year-old female presents to the ER complaining of bilateral knee/lower extremity discomfort and right elbow pain since yesterday. 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 Pain is described as 7/10 dull nonradiating intermittent discomfort. The pain is exacerbated on touch and alleviated minimally at rest. Patient denies fever/chills, nausea/vomiting, hemoptysis, headache, dizziness, lightheadedness, neck/back pain/stiffness, chest pain, shortness of breath, abdominal pains, extremity numbness or tingling sensation. Patient denies prolonged sitting, recent flight or OCP. Past History - Past Medical History Allergies/Adverse Reactions: Allergies Allergy/AdvReac Type Severity Reaction Status Date / Time No Known Allergies Allergy Verified 08/31/18 16:05 Home Medications: Ambulatory Orders NK [No Known Home Medication] 08/31/18 Anemia: No Asthma: Yes Cancer: No Cardiac Disorders: No CVA: No COPD: No CHF: No DVT: No Dementia: No Diabetes: No GI Disorders: No Disorders: No HTN: Yes Hypercholesterolemia: No Liver Disease: No Seizures: No Thyroid Disease: No - Surgical History Abdominal Surgery: No Appendectomy: No Cardiac Surgery: No Cholecystectomy: No Lung Surgery: No Neurologic Surgery: No - Suicide/Smoking/Psychosocial Hx Smoking Status: No Smoking History: Never smoked Have you smoked in the past 12 months: No Number of Cigarettes Smoked Daily: 0 Hx Alcohol Use: No Drug/Substance Use Hx: No Substance Use Type: None Review of Systems - Review of Systems Able to Perform ROS?: Yes Comments:: 08/31/18 16:45 CONSTITUTIONAL: Absent: fever, chills, diaphoresis, generalized weakness, malaise, loss of appetite HEENT: Absent: rhinorrhea, nasal congestion, throat pain, throat swelling, difficulty swallowing, mouth swelling, ear pain, eye pain, visual Changes CARDIOVASCULAR: Absent: chest pain, loss of consciousness, palpitations, irregular heart rate, peripheral edema RESPIRATORY: Absent: cough, shortness of breath, dyspnea with exertion, orthopnea, wheezing, stridor, hemoptysis GASTROINTESTINAL: Absent: abdominal pain, abdominal distension, nausea, vomiting, diarrhea, constipation, melena, hematochezia GENITOURINARY: Absent: dysuria, frequency, urgency, hesitancy, hematuria, flank pain, genital pain MUSCULOSKELETAL: +B/L knee pain/right elbow/ B/U le pain Absent: myalgia, arthralgia, joint swelling SKIN: Absent: rash, itching, pallor HEMATOLOGIC/IMMUNOLOGIC: Absent: easy bleeding, easy bruising, lymphadenopathy, frequent infections ENDOCRINE: Absent: unexplained weight gain, unexplained weight loss, heat intolerance, cold intolerance NEUROLOGIC: Absent: headache, focal weakness or paresthesias, dizziness, unsteady gait, seizure, mental status changes, bladder or bowel incontinence Is the patient limited Malay proficient: No *Physical Exam - Vital Signs Last Vital Signs Temp Pulse Resp BP Pulse Ox 98.2 F 78 18 150/93 98 08/31/18 16:08 08/31/18 16:08 08/31/18 16:08 08/31/18 16:08 08/31/18 16:08 - Physical Exam Comments: 08/31/18 16:46 GENERAL: Well developed, well nourished. Awake and alert. No acute distress. HEENT: Normocephalic, atraumatic. PERRLA, EOMI. No conjunctival pallor. Sclera are non- icteric. Moist mucous membranes. Oropharynx is clear. NECK: Supple. Full ROM. No JVD. Carotid pulses 2+ and symmetric, without bruits. No thyromegaly. No lymphadenopathy. CARDIOVASCULAR: Regular rate and rhythm. No murmurs, rubs, or gallops. Distal pulses are 2+ and symmetric. PULMONARY: No evidence of respiratory distress. Lungs clear to auscultation bilaterally. No wheezing, rales or rhonchi. ABDOMINAL: Soft. Non-tender. Non-distended. No rebound or guarding. No organomegaly. Normoactive bowel sounds. MUSCULOSKELETAL Normal range of motion at all joints. No bony deformities or tenderness. No CVA tenderness. EXTREMITIES: B/L knees F.R>O.M> neg obv deformities Neg swelling neg valrus/valgus/ant/posterior drawer B/L hips F.R.O.M. neg pain on palp B/L ankle 2+dp pulse neg pain on palp neg obv deformities Calf tenderness on palp Achilles intact Right elbow F.R.O.M. neg pain on palp neg swelling Right shoulder/ankle F.R.O.M. neg kay Neg steve Neg Neer Right wrist 2+radial pulse No cyanosis. No clubbing. No edema. No calf tenderness. SKIN: Warm and dry. Normal capillary refill. No rashes. No jaundice. NEUROLOGICAL: Alert, awake, appropriate. Cranial nerves 2-12 intact. No deficits to light touch and temperature in face, upper extremities and lower extremities. No motor deficits in the in face, upper extremities and lower extremities. Normoreflexic in the upper and lower extremities. Normal speech. Toes are down- going bilaterally. Gait is normal without ataxia. 08/31/18 16:52 08/31/18 16:54 Moderate Sedation - Procedure Monitoring Vital Signs: Procedure Monitoring Vital Signs Temperature 98.2 F 08/31/18 16:08 Pulse Rate 78 08/31/18 16:08 Respiratory Rate 18 08/31/18 16:08 Blood Pressure 150/93 08/31/18 16:08 O2 Sat by Pulse Oximetry (%) 98 08/31/18 16:08 ED Treatment Course - RADIOLOGY Radiograph Interpretation: 08/31/18 16:54 B/L duplex:neg *DC/Admit/Observation/Transfer Diagnosis at time of Disposition: Tendonitis of elbow, right - Discharge Dispostion Condition at time of disposition: Stable Decision to Admit order: No - Referrals Referrals: Ashok Becker DO [Staff Physician] - - Patient Instructions Printed Discharge Instructions: DI for Lateral Epicondylitis (Tennis Elbow), DI for Knee Pain Additional Instructions: Ice; 20 mins on alternating with 20 mins off for 48 hours while awake. Rest Elevate Follow up with your orthopedic surgeon or the one listed on the discharge form. Return to the ER for severe/persistent/worsening symptoms, extremity numbness/ tingling sensation. Print Language: BANGLADESHI - Post Discharge Activity
[2018-08-31] MEDS ORDERED: KETOROLAC TROMETHAMINE 60 MG/2 ML VIAL ONE (17:53)
== END 2018-08-31 17:59 | disposition home or self-care (01) ==
LOC: JERFT 15:59
PROC: 3E0233Z Introduction of Anti-inflammatory into Muscle, Percutaneous Approach (ICD-10-PCS; principal; 2018-08-31)
DX: M77.11 Lateral epicondylitis, right elbow (principal); X50.3XXA Overexertion from repetitive movements, initial encounter; Y93.E9 Activity, other interior property and clothing maintenance; Y92.89 Other specified places as the place of occurrence of the external cause; Y99.0 Civilian activity done for income or pay
CPT/HCPCS: 93970-TC; 99281-25

== ENCOUNTER 2018-09-08 23:56 | Emergency (ER) | payer OTHER ==
--- NOTE | 2018-09-09 00:37 | PDOC ---
History of Present Illness - History of Present Illness Initial Comments: This patient is a 47 year old Setswana-speaking female with a PMHx of asthma ( has a pump bu tdoes not liek to use it), who presents with 1 week of difficulty breathing and some cold symptoms. Patient states that she was walking without her shoes in the cold floor and believe she caught a cold. She reports wheezing , productive cough with clear phlegm, chest soreness (which she attributes from coughing). Rerpots she was last given Prednisone last year. Reports LMP in 2007. Denies any chest pain, palpitations or headache. Denies getting flu shot this season. States she has been eating and sleeping well. Denies h/o DM, HTN. 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 Denies smoking history. <Kitty Enamorado - Last Filed: 09/09/18 01:40> <Mandi Chao - Last Filed: 09/09/18 04:27> - General Chief Complaint: Chest Pain Stated Complaint: CHEST PAIN Time Seen by Provider: 09/09/18 00:35 Past History <Kitty Enamorado - Last Filed: 09/09/18 01:40> - Past Medical History Anemia: No Asthma: Yes Cancer: No Cardiac Disorders: No CVA: No COPD: No CHF: No DVT: No Dementia: No Diabetes: No GI Disorders: No Disorders: No HTN: Yes Hypercholesterolemia: No Liver Disease: No Seizures: No Thyroid Disease: No - Surgical History Abdominal Surgery: No Appendectomy: No Cardiac Surgery: No Cholecystectomy: No Lung Surgery: No Neurologic Surgery: No - Suicide/Smoking/Psychosocial Hx Smoking Status: No Smoking History: Never smoked Have you smoked in the past 12 months: No Number of Cigarettes Smoked Daily: 0 Hx Alcohol Use: No Drug/Substance Use Hx: No Substance Use Type: None <Mandi Chao - Last Filed: 09/09/18 04:27> - Past Medical History Allergies/Adverse Reactions: Allergies Allergy/AdvReac Type Severity Reaction Status Date / Time No Known Allergies Allergy Verified 09/09/18 00:42 Home Medications: Ambulatory Orders Albuterol Sulfate Inhaler - [Ventolin HFA Inhaler -] 1 - 2 inh PO QID #1 inhaler 09/09/18 Review of Systems - Review of Systems Comments:: GENERAL/CONSTITUTIONAL: No fever or chills. No weakness. HEAD, EYES, EARS, NOSE AND THROAT: No change in vision. No ear pain or discharge. No sore throat. CARDIOVASCULAR: +chest muscle soreness. + difficulty breathing. RESPIRATORY: +cough, +wheezing, no hemoptysis. GASTROINTESTINAL: No nausea, vomiting, diarrhea or constipation. GENITOURINARY: No dysuria, frequency, or change in urination. MUSCULOSKELETAL: No joint or muscle swelling.. No neck or back pain. SKIN: No rash NEUROLOGIC: No headache, vertigo, loss of consciousness, or change in strength/ sensation. ENDOCRINE: No increased thirst. No abnormal weight change. HEMATOLOGIC/LYMPHATIC: No anemia, easy bleeding, or history of blood clots. ALLERGIC/IMMUNOLOGIC: No hives or skin allergy. <Kitty Enamorado - Last Filed: 09/09/18 01:40> *Physical Exam - Vital Signs Last Vital Signs Temp Pulse Resp BP Pulse Ox 98.2 F 79 16 116/84 97 09/08/18 23:56 09/08/18 23:56 09/08/18 23:56 09/08/18 23:56 09/08/18 23:56 - Physical Exam Comments: GENERAL: Awake, alert, and fully oriented, in no acute distress HEAD: No signs of trauma EYES: PERRLA, EOMI, sclera anicteric, conjunctiva clear NECK: Normal ROM, supple, no lymphadenopathy, JVD, or masses LUNGS:Diffuse wheezing throughout. HEART: Regular rate and rhythm, normal S1 and S2, no murmurs, rubs or gallops ABDOMEN: Soft, nontender. No guarding, no rebound. No masses EXTREMITIES: Normal range of motion, no pitting edema. No clubbing or cyanosis. No cords, erythema, or tenderness NEUROLOGICAL: Normal speech, normal gait SKIN: Warm, Dry, normal turgor, no rashes or lesions noted. <Kitty Enamorado - Last Filed: 09/09/18 01:40> Moderate Sedation - Procedure Monitoring Vital Signs: Procedure Monitoring Vital Signs Temperature 98.2 F 09/08/18 23:56 Pulse Rate 79 09/08/18 23:56 Respiratory Rate 16 09/08/18 23:56 Blood Pressure 116/84 09/08/18 23:56 O2 Sat by Pulse Oximetry (%) 97 09/08/18 23:56 <Kitty Enamorado - Last Filed: 09/09/18 01:40> ED Treatment Course - Medications Given in the ED: ED Medications Discontinued Medications Generic Name Dose Route Start Last Admin Trade Name Chari PRN Reason Stop Dose Admin Albuterol/Ipratropium 1 amp 09/09/18 00:39 09/09/18 00:57 Duoneb - NEB 09/09/18 00:40 1 amp ONCE ONE Administration Dexamethasone 10 mg 09/09/18 00:39 09/09/18 00:57 Decadron Liquid - PO 09/09/18 00:40 10 mg ONCE ONE Administration <Kitty Enamorado - Last Filed: 09/09/18 01:40> - RADIOLOGY Radiology Studies Ordered: Category Date Time Status CHEST PA & LAT [RAD] Stat Radiology 09/09/18 00:35 Ordered <Mandi Chao - Last Filed: 09/09/18 04:27> Medical Decision Making - Medical Decision Making 09/09/18 04:26 Asthma exacerbation; CXR normal Impression: viral illness: home with ventolin inhaler. Pt was given decadron here. <Mandi Chao - Last Filed: 09/09/18 04:27> *DC/Admit/Observation/Transfer - Attestations Scribe Attestion: 09/09/18 01:44 Documentation prepared by Kitty Enamorado, acting as medical hospital sales for Mandi Chao MD. <Kitty Enamorado - Last Filed: 09/09/18 01:40> - Discharge Dispostion Decision to Admit order: No <Mandi Chao - Last Filed: 09/09/18 04:27> Diagnosis at time of Disposition: Asthma, Viral upper respiratory illness - Discharge Dispostion Disposition: HOME Condition at time of disposition: Improved - Prescriptions Prescriptions: Albuterol Sulfate Inhaler - [Ventolin HFA Inhaler -] 1 - 2 inh PO QID #1 inhaler - Patient Instructions Printed Discharge Instructions: Common Cold, DI for Viral Upper Respiratory Infection -- Adult, Diet High in Fruits and Vegetables May Reduce Asthma Exacerbations - Post Discharge Activity Forms/Work/School Notes: Back to Work
[2018-09-09] MEDS ORDERED: ALBUTEROL SO4 2.5/IPRATROPIUM 0.5 INH SOL 3 ML VIAL.NEB. NEB ONE ×4 (00:39→01:30)
[2018-09-09] MEDS ORDERED: DEXAMETHASONE LIQUID 0.5 MG/5 ML 240 ML BULK BOTTLE PO ONE (00:39)
[2018-09-09 00:53] VITALS: BP 116/84; PULSE 79; TEMP 98.2; BMI 33.2
[2018-09-09] MEDS ORDERED: DEXAMETHASONE SOD PHOSPHATE 10 MG/1 ML VIAL ONE (00:53)
--- NOTE | 2018-09-09 16:38 | EKG ---
Test Reason : Blood Pressure : / mmHG Vent. Rate : 067 BPM Atrial Rate : 067 BPM P-R Int : 148 ms QRS Dur : 088 ms QT Int : 416 ms P-R-T Axes : 050 041 027 degrees QTc Int : 439 ms NORMAL SINUS RHYTHM NORMAL ECG WHEN COMPARED WITH ECG OF 22-NOV-2017 19:01, NO SIGNIFICANT CHANGE WAS FOUND Confirmed by MD ALLEN MOYSES ([id number]) on 09/09/2018 4:38:23 PM Referred By: Confirmed By:ERIS ALLEN MD
== END 2018-09-09 04:12 | disposition home or self-care (01) ==
LOC: JER 23:56
PROC: 3E0F7GC Introduction of Other Therapeutic Substance into Respiratory Tract, Via Natural or Artificial Opening (ICD-10-PCS; principal; 2018-09-08)
PROC: 3E0F7GC Introduction of Other Therapeutic Substance into Respiratory Tract, Via Natural or Artificial Opening (ICD-10-PCS; 2018-09-08)
DX: J45.901 Unspecified asthma with (acute) exacerbation (principal); J06.9 Acute upper respiratory infection, unspecified
CPT/HCPCS: 71046-TC-FY; 93005; 93010; 94640; 99283-25

== ENCOUNTER 2019-01-25 21:25 | Emergency (ER) | payer OTHER ==
[2019-01-25 21:38] VITALS: BMI 25.9
[2019-01-25] MEDS ORDERED: ALBUTEROL SO4 2.5/IPRATROPIUM 0.5 INH SOL 3 ML VIAL.NEB. NEB ONE ×2 (22:29→22:31)
--- NOTE | 2019-01-25 22:29 | PDOC ---
History of Present Illness - General Chief Complaint: Sore Throat Stated Complaint: SORE THROAT FEVER Time Seen by Provider: 01/25/19 21:55 History Source: Patient Exam Limitations: No Limitations - History of Present Illness Initial Comments: 01/25/19 22:18 48 yo female pmh asthma (does not require medication) presents to the ED for 2 days of sore throat and fevers. Pt tried nyquil without relief (last dose 3 pm today) and admits to Past History - Past Medical History Allergies/Adverse Reactions: Allergies Allergy/AdvReac Type Severity Reaction Status Date / Time No Known Allergies Allergy Verified 01/25/19 21:38 Home Medications: Ambulatory Orders Albuterol Sulfate Inhaler - [Ventolin HFA Inhaler -] 1 - 2 inh PO QID #1 inhaler 09/09/18 Albuterol Sulfate 0.5% [Ventolin 0.5% Nebulizing Soln. -] 1 amp NEB PRN #1 amp 01/26/19 predniSONE [Deltasone -] 50 mg PO DAILY #4 tablet 01/26/19 Anemia: No Asthma: Yes Cancer: No Cardiac Disorders: No CVA: No COPD: No CHF: No DVT: No Dementia: No Diabetes: No GI Disorders: No Disorders: No HTN: Yes Hypercholesterolemia: No Liver Disease: No Seizures: No Thyroid Disease: No - Surgical History Abdominal Surgery: No Appendectomy: No Cardiac Surgery: No Cholecystectomy: No Lung Surgery: No Neurologic Surgery: No - Suicide/Smoking/Psychosocial Hx Smoking Status: No Smoking History: Never smoked Have you smoked in the past 12 months: No Number of Cigarettes Smoked Daily: 0 Information on smoking cessation initiated: No Hx Alcohol Use: No Drug/Substance Use Hx: No Substance Use Type: None *Physical Exam - Vital Signs Last Vital Signs Temp Pulse Resp BP Pulse Ox 98.7 F 90 18 155/89 91 L 01/25/19 21:35 01/25/19 21:35 01/25/19 21:35 01/25/19 21:35 01/25/19 21:35 ED Treatment Course - LABORATORY CBC & Chemistry Diagram: 01/25/19 23:45 01/25/19 23:45 Medical Decision Making - Medical Decision Making 01/26/19 01:58 Pt received 4 duonebs, prednisone 50 mg O2 96% seated, 96 ambulatory 01/26/19 02:00 Will give Prednisone 50 mg 4 days and 1 albuterol pump with PCP f/u *DC/Admit/Observation/Transfer Diagnosis at time of Disposition: Sore throat - Discharge Dispostion Disposition: HOME Condition at time of disposition: Stable Decision to Admit order: No - Referrals Referrals: [facility] [place] [facility] [place] [Provider Group] - Patient Instructions Printed Discharge Instructions: DI for Strep Throat, Asthma -- Adult Additional Instructions: Please see your primary doctor within the next 48 hours. Take Prednisone 1 time daily for the next 4 days and use the Albuterol pump as needed. Take over the Counter Tylenol or Motrin as needed for fevers. Return to the ER for new or concerning symptoms including but not limited to: inability to eat or drink, high fevers, drooling, difficulty breathing, inability to swallow. Thank you - Post Discharge Activity
[2019-01-25] MEDS ORDERED: ACETAMINOPHEN 1000 MG/100 ML VIAL (NON FORMULARY) IVPB ONE (23:43)
[2019-01-25 23:59] LABS: BASO % 0.1 % (0-2.0); EOS % 5.4 % (0-4.5); HEMATOCRIT 39.2 % (32.4-45.2); LYMPH % 21.1 % (8-40); MCH 30.4 pg (25.7-33.7); MCHC 33.2 g/dl (32.0-36.0); MEAN CELL VOLUME 91.5 fl (80-96); MEAN PLT VOLUME 8.9 fl (7.5-11.1); NEUT % 68.4 % (42.8-82.8); PLATELET COUNT 210 K/MM3 (134-434); RBC 4.29 M/mm3 (3.60-5.2); RDW 13.2 % (11.6-15.6); WHITE BLOOD COUNT 8.5 K/mm3 (4.0-10.0)
[2019-01-25] MEDS ORDERED: ACETAMINOPHEN INJECTION 100 ML IVPB ONE (23:59)
[2019-01-26] MEDS ORDERED: KETOROLAC TROMETHAMINE 30 MG/1 ML VIAL IVPUSH ONE (00:15)
[2019-01-26] MEDS ORDERED: predniSONE 20 MG TABLET (UD) PO ONE (00:15)
[2019-01-26] MEDS ORDERED: SODIUM CHLORIDE 1,000 ML IV STA (00:16)
[2019-01-26] MEDS ORDERED: ALBUTEROL SO4 2.5/IPRATROPIUM 0.5 INH SOL 3 ML VIAL.NEB. NEB ONE (00:18)
--- NOTE | 2019-01-26 00:22 | PDOC ---
Documentation entered by Ricarda Gracia SCRIBE, acting as scribe for Jodee Bailey MD. Jodee Bailey MD: This documentation has been prepared by the Basil rowland Nirvannie, SCRIBE, under my direction and personally reviewed by me in its entirety. I confirm that the documentation accurately reflects all work, treatment, procedures, and medical decision making performed by me. Attending Attestation - Resident Resident Name: [email or web address] - ED Attending Attestation I have performed the following: I have examined & evaluated the patient, The case was reviewed & discussed with the resident, I agree w/resident's findings & plan, Exceptions are as noted - HPI HPI: 01/25/19 22:45 The patient is a 48 year old female, with a significant past medical history of asthma, who presents to the emergency department with, 2 days of sore throat and subjective fevers. Patient endorses taking NyQuil for her symptoms, without relief, prompting her arrival to the ED. +nasal congestion. Denies cough, headache, weakness/numbness, CP, SOB. Denies N/V/D, abd pain. Denies stiff neck , back pain. Denies recent dysuria, frequency, urgency or hematuria. Allergies: NKDA Past surgical history: C-Sections. Social history: Nonsmoker. Denies EtOH use and recreational drug use. - Physicial Exam PE: 01/25/19 22:45 GENERAL: Awake, alert, and fully oriented, in no acute distress lying flat. Non toxic appearing. HEAD: No signs of trauma EYES: PERRLA, EOMI, sclera anicteric, conjunctiva clear ENT: Auricles normal inspection, hearing grossly normal, +nasal congestion, +OP erythema w/o exudates. Moist mucosa. Tolerating secretions. NECK: Normal ROM, supple, no lymphadenopathy, JVD, or masses LUNGS: Breath sounds equal, clear to auscultation bilaterally. No wheezes, and no crackles HEART: Regular rate and rhythm, normal S1 and S2, no murmurs, rubs or gallops ABDOMEN: Soft, nontender, normoactive bowel sounds. No guarding, no rebound. No masses EXTREMITIES: Normal range of motion, no edema.No cords, erythema, or tenderness BACK: No midline spinal tenderness in cervical/thoracic/lumbar region NEUROLOGICAL: Normal speech, cranial nerves intact, 5/5 strength in all 4 extremities, normal sensation to light touch in all 4 extremities, normal cerebellar exam, normal gait SKIN: Warm, Dry, normal turgor, no rashes or lesions noted. - Medical Decision Making 01/26/19 00:19 48yo F hx asthma presents to the ED with subjective fever, sore throat Vitals remarkable for hypoxia to 91% Pt was initially wheezing, improved on my evaluation after nebs Likely viral syndrome with asthma exacerbation Flu/strep negative CXR clear Labs wnl Plan for more nebs, steroids, fluids, toradol, reassess 01/26/19 01:30 Pt feeling significantly better Requests DC home CXR clear, labs wnl Ambulatory O2 sat throughout ED remained greater than 96% on RA Pt to f/u with PMD within 2-3 days I discussed the physical exam findings, ancillary test results and final diagnoses with the patient and her daughter. I answered all of the patient's questions. The patient was satisfied with the care received and felt comfortable with the discharge plan and treatment plan. The patient will call their primary care physician within 24 hours to arrange follow-up and will return to the Emergency Department with any new, persistent or worsening symptoms.
[2019-01-26 00:24] LABS: ALBUMIN 4.1 g/dl (3.4-5.0); BILIRUBIN,TOTAL 0.5 mg/dL (0.2-1); CALCIUM 8.9 mg/dL (8.5-10.1); CREATININE 0.7 mg/dL (0.55-1.3); POTASSIUM 3.8 mmol/L (3.5-5.1); TOT PROT 7.6 g/dl (6.4-8.2)
[2019-01-26] MEDS ORDERED: predniSONE 20 MG TABLET (UD) ONE (00:31)
[2019-01-26] MEDS ORDERED: KETOROLAC TROMETHAMINE 30 MG/1 ML VIAL ONE (00:31)
[2019-01-26] MEDS ORDERED: ALBUTEROL SO4 0.083% IH SOL 2.5 MG/3 ML VIAL.NEB. NEB ONE (01:15)
[2019-01-26 01:19] VITALS: TEMP 98.9
[2019-01-26 02:36] VITALS: BP 124/71; PULSE 93
== END 2019-01-26 02:39 | disposition home or self-care (01) ==
LOC: JER 21:25
PROC: 3E0F7GC Introduction of Other Therapeutic Substance into Respiratory Tract, Via Natural or Artificial Opening (ICD-10-PCS; principal; 2019-01-25)
PROC: 3E0F7GC Introduction of Other Therapeutic Substance into Respiratory Tract, Via Natural or Artificial Opening (ICD-10-PCS; 2019-01-25)
PROC: 3E0337Z Introduction of Electrolytic and Water Balance Substance into Peripheral Vein, Percutaneous Approach (ICD-10-PCS; 2019-01-25)
PROC: 3E033NZ Introduction of Analgesics, Hypnotics, Sedatives into Peripheral Vein, Percutaneous Approach (ICD-10-PCS; 2019-01-25)
PROC: 3E0333Z Introduction of Anti-inflammatory into Peripheral Vein, Percutaneous Approach (ICD-10-PCS; 2019-01-25)
DX: J02.0 Streptococcal pharyngitis (principal); J45.909 Unspecified asthma, uncomplicated
CPT/HCPCS: 36415; 71046-TC-FY; 80053; 85025; 87070; 87804; 87880; 99282-25; J0131; J7030

== ENCOUNTER 2019-07-20 10:35 | Emergency (ER) | payer OTHER ==
[2019-07-20 10:53] VITALS: BP 141/87; PULSE 76; TEMP 98.9; BMI 32.6
[2019-07-20] MEDS ORDERED: ALBUTEROL SO4 2.5/IPRATROPIUM 0.5 INH SOL 3 ML VIAL.NEB. NEB ONE ×3 (11:17→13:13)
[2019-07-20] MEDS ORDERED: predniSONE 20 MG TABLET (UD) ONE (11:27)
[2019-07-20] MEDS ORDERED: predniSONE 10 MG TABLET (UD) ONE (11:27)
--- NOTE | 2019-07-20 11:30 | PDOC ---
History of Present Illness - General Chief Complaint: Respiratory Stated Complaint: COLD SYMPTOMS Time Seen by Provider: 07/20/19 11:01 History Source: Patient Exam Limitations: No Limitations - History of Present Illness Initial Comments: 07/20/19 11:24 48-year-old female Syrian-speaking, history of asthma, denies history of intubation, presents complaining of dry cough for 2 weeks. Occasional shortness of breath when coughing. Denies fever, chills, body aches, headache, sore throat, earache, sick contacts, recent travel, chest pain, back pain. Reports symptoms are similar to her asthma exacerbation. Does not use albuterol MDI because she does not like the taste. Attempted to see her PMD today however the office was closed. ROS: GENERAL/CONSTITUTIONAL: No fever, chills, weakness, dizziness HEAD, EYES, EARS, NOSE AND THROAT: No changes in vision, No ear pain or discharge, No sore throat CARDIOVASCULAR: No chest pain RESPIRATORY: Dry cough GASTROINTESTINAL: No pain, nausea, vomiting, diarrhea or constipation GENITOURINARY: No dysuria MUSCULOSKELETAL: No neck or back pain SKIN: No rash NEUROLOGIC: No headache, vertigo, loss of consciousness, or loss of sensation PE: GENERAL: well-appearing, NAD, speaking full sentences HEAD: NCAT EYES: Pupils equal, round and reactive to light, sclera anicteric, conjunctiva clear ENT: pharynx: no erythema, no exudate, uvula midline NECK: supple CHEST: nontender RESP: Wheezing throughout all lung hardy CARDIO: rrr, no m/g/r ABD: +BS, soft, nontender, non distended BACK: no midline spinal ttp, no CVAT EXTREMITIES: Normal range of motion, no edema NEUROLOGICAL: Normal speech, normal gait SKIN: Warm, Dry Is this a multiple visit Asthma Patient?: No Past History - Past Medical History Allergies/Adverse Reactions: Allergies Allergy/AdvReac Type Severity Reaction Status Date / Time No Known Allergies Allergy Verified 07/20/19 10:53 Home Medications: Ambulatory Orders Albuterol Sulfate Inhaler - [Ventolin HFA Inhaler -] 1 - 2 inh PO QID #1 inhaler 09/09/18 Albuterol Sulfate 0.5% [Ventolin 0.5% Nebulizing Soln. -] 1 amp NEB PRN #1 amp 01/26/19 predniSONE [Deltasone -] 50 mg PO DAILY #4 tablet 01/26/19 Prednisone [Prednisone 50 MG TABLETS] 50 mg PO DAILY #4 tablet 07/20/19 Anemia: No Asthma: Yes Cancer: No Cardiac Disorders: No CVA: No COPD: No CHF: No DVT: No Dementia: No Diabetes: No GI Disorders: No Disorders: No HTN: Yes Hypercholesterolemia: No Liver Disease: No Seizures: No Thyroid Disease: No - Surgical History Abdominal Surgery: No Appendectomy: No Cardiac Surgery: No Cholecystectomy: No Lung Surgery: No Neurologic Surgery: No - Psycho Social/Smoking Cessation Hx Smoking Status: No Smoking History: Never smoked Have you smoked in the past 12 months: No Number of Cigarettes Smoked Daily: 0 Hx Alcohol Use: No Drug/Substance Use Hx: No Substance Use Type: None *Physical Exam - Vital Signs Last Vital Signs Temp Pulse Resp BP Pulse Ox 98.9 F 76 141/87 07/20/19 10:50 07/20/19 10:50 07/20/19 10:50 Medical Decision Making - Medical Decision Making 07/20/19 11:30 48-year-old female complaining of dry cough x2-week likely asthma exacerbation Wheezing throughout all lung hardy Will give duo nebs P.o. prednisone 50 mg x 1 dose Reassess 07/20/19 14:09 Patient feels better after 2 nebs Take prednisone 50 mg 1 tablet daily x4 days starting tomorrow Follow-up with your doctor in 1 week Understands return precautions Discharge - Discharge Information Problems reviewed: Yes Clinical Impression/Diagnosis: Asthma exacerbation Qualifiers: Asthma severity: mild Asthma persistence: intermittent Qualified Code(s): J45.21 - Mild intermittent asthma with (acute) exacerbation Condition: Stable Disposition: HOME - Admission No - Additional Discharge Information Prescriptions: Prednisone [Prednisone 50 MG TABLETS] 50 mg PO DAILY #4 tablet - Follow up/Referral Referrals: Patel Rowell MD [Primary Care Provider] - - Patient Discharge Instructions Additional Instructions: Take prednisone 50 mg 1 tablet daily for 4 days Use albuterol MDI 1 to 2 puffs every 4-6 hours as needed for cough and shortness of breath Follow-up with your doctor within 1 week Return to ED if shortness of breath, cough, chest pain, or any worsening symptoms - Post Discharge Activity
[2019-07-21] MEDS ORDERED: predniSONE 20 MG TABLET (UD) PO ONE (11:19)
== END 2019-07-20 14:17 | disposition home or self-care (01) ==
LOC: JERFT 10:35
PROC: 3E0F7GC Introduction of Other Therapeutic Substance into Respiratory Tract, Via Natural or Artificial Opening (ICD-10-PCS; principal; 2019-07-20)
PROC: 3E0F7GC Introduction of Other Therapeutic Substance into Respiratory Tract, Via Natural or Artificial Opening (ICD-10-PCS; 2019-07-20)
DX: J45.21 Mild intermittent asthma with (acute) exacerbation (principal); I10 Essential (primary) hypertension
CPT/HCPCS: 94640; 99281-25

== ENCOUNTER 2022-02-25 07:40 | Emergency (ER) | payer SELFPAY ==
[2022-02-25 08:02] VITALS: BP 167/86; PULSE 70; TEMP 97.8; BMI 36.9
[2022-02-25 10:44] LABS: THROAT:GRP A STREP NOT DETECTED (NOTDETECTED)
== END 2022-02-25 10:36 | disposition home or self-care (01) ==
LOC: JER 07:40
DX: R05.9 Cough, unspecified (principal)
CPT/HCPCS: 0241U-QW; 71046-TC-FY; 87651; 99284-25

== ENCOUNTER 2022-06-21 06:20 | Emergency (ER) | payer OTHER ==
[2022-06-21 06:28] VITALS: BP 155/87; PULSE 76; RESP 18; TEMP 98.1; BMI 39.0
[2022-06-21] MEDS ORDERED: IBUPROFEN 600 MG TABLET (FP) PO ONE ×2 (07:20→07:25)
[2022-06-21 08:41] LABS: THROAT:GRP A STREP NOT DETECTED (NOTDETECTED)
== END 2022-06-21 07:45 | disposition home or self-care (01) ==
LOC: JER 06:20
DX: U07.1 COVID-19 (principal)
CPT/HCPCS: 0241U-QW; 87070; 87651; 93005; 93010; 99284-25

== ENCOUNTER 2022-07-06 23:52 | Emergency (ER) | payer OTHER ==
[2022-07-06 23:57] VITALS: BP 141/83; PULSE 95; RESP 17; TEMP 98.4; BMI 35.2
[2022-07-07] MEDS ORDERED: ACETAMINOPHEN 1000 MG/100 ML BAG IVPB ONE (00:52)
[2022-07-07] MEDS ORDERED: ACETAMINOPHEN INJECTION 100 ML IVPB ONE (00:58)
[2022-07-07 01:15] LABS: BASO % 0.1 % (0-2.0); EOS % 1.1 % (0-4.5); HEMOGLOBIN 11.6 GM/dL (10.7-15.3); LYMPH % 18.2 % (8-40); MCH 29.1 pg (25.7-33.7); MCHC 34.1 g/dl (32.0-36.0); MEAN CELL VOLUME 85.5 fl (80-96); MEAN PLT VOLUME 8.7 fl (7.5-11.1); MONO % 4.9 % (3.8-10.2); NEUT % 75.7 % (42.8-82.8); PLATELET COUNT 219 10^3/uL (134-434); RBC 3.98 M/mm3 (3.60-5.2); RDW 14.6 % (11.6-15.6); WHITE BLOOD COUNT 5.9 K/mm3 (4.0-10.0)
[2022-07-07 01:25] LABS: INR 1.16 (0.83-1.09); PROTHROMBIN TIME (PATIENT) 13.4 SEC (9.7-13.0)
[2022-07-07 01:28] LABS: ACTIVATED PTT 30.5 SECONDS (25.2-36.5)
[2022-07-07 01:36] LABS: CALCIUM 8.5 mg/dL (8.5-10.1)
[2022-07-07 01:38] LABS: ALBUMIN 3.5 g/dl (3.4-5.0); BLOOD UREA NITROGEN 15.5 mg/dL (7-18)
[2022-07-07 01:41] LABS: CREATININE 0.7 mg/dL (0.55-1.3)
[2022-07-07 01:43] LABS: BILIRUBIN,TOTAL 0.6 mg/dL (0.2-1); TOT PROT 6.6 g/dl (6.4-8.2)
== END 2022-07-07 04:38 | disposition home or self-care (01) ==
LOC: JER 23:52
PROC: 3E0333Z Introduction of Anti-inflammatory into Peripheral Vein, Percutaneous Approach (ICD-10-PCS; principal; 2022-07-06)
DX: M54.50 Low back pain, unspecified (principal); K76.0 Fatty (change of) liver, not elsewhere classified
CPT/HCPCS: 0241U-QW; 36415; 71046-TC-FY; 71275-TC; 74174-TC; 80053; 84484; 85025; 85610; 85730; 93005; 93010; 99285-25

== ENCOUNTER 2022-12-08 22:41 | Emergency (ER) | payer OTHER ==
[2022-12-08 23:00] VITALS: BP 178/88; PULSE 66; RESP 20; TEMP 98.1; BMI 40.2
[2022-12-08] MEDS ORDERED: SODIUM CHLORIDE NASAL SPRAY 44 ML BOTTLE NS ONE (23:21)
[2022-12-08] MEDS ORDERED: DEXAMETHASONE SOD PHOSPHATE 10 MG/1 ML VIAL IM ONE (23:22)
[2022-12-09] MEDS ORDERED: DEXAMETHASONE SOD PHOSPHATE 10 MG/1 ML VIAL ONE (00:35)
[2022-12-09] MEDS ORDERED: ALBUTEROL SO4 2.5/IPRATROPIUM 0.5 INH SOL 3 ML VIAL.NEB. NEB ONE (00:35)
[2022-12-09] MEDS: ALBUTEROL SO4 2.5/IPRATROPIUM 0.5 INH SOL 3 ML VIAL.NEB. NEB SCH ×2 (00:50→00:54)
[2022-12-09] MEDS ORDERED: AZITHROMYCIN 250 MG TABLET PO ONE (00:55)
[2022-12-09] MEDS ORDERED: AZITHROMYCIN 500 MG TABLET ONE (02:33)
== END 2022-12-09 03:05 | disposition home or self-care (01) ==
LOC: JER 22:41
PROC: 3E023GC Introduction of Other Therapeutic Substance into Muscle, Percutaneous Approach (ICD-10-PCS; principal; 2022-12-09)
PROC: 3E0F7GC Introduction of Other Therapeutic Substance into Respiratory Tract, Via Natural or Artificial Opening (ICD-10-PCS; 2022-12-09)
DX: J06.9 Acute upper respiratory infection, unspecified (principal); R09.81 Nasal congestion; R50.9 Fever, unspecified; Z20.822 Contact with and (suspected) exposure to COVID-19
CPT/HCPCS: 0241U-QW; 71046-TC-FY; 93005; 93010; 99285-25; J1100

== ENCOUNTER 2023-08-26 22:06 | Emergency (ER) | payer OTHER ==
[2023-08-26 22:10] VITALS: BMI 40.4
[2023-08-26] MEDS ORDERED: ALBUTEROL SO4 2.5/IPRATROPIUM 0.5 INH SOL 3 ML VIAL.NEB. NEB ONE (22:33)
[2023-08-26] MEDS ORDERED: predniSONE 20 MG TABLET (UD) ONE (22:33)
[2023-08-26] MEDS ORDERED: DEXAMETHASONE SOD PHOSPHATE 10 MG/1 ML VIAL IM ONE (22:34)
[2023-08-26] MEDS: ALBUTEROL SO4 2.5/IPRATROPIUM 0.5 INH SOL 3 ML VIAL.NEB. NEB SCH ×4 (22:39→23:18)
[2023-08-26] MEDS ORDERED: predniSONE 20 MG TABLET (UD) PO ONE (22:42)
[2023-08-27 00:22] VITALS: BP 143/72; PULSE 88; RESP 18; TEMP 98.4
[2023-08-27] MEDS ORDERED: predniSONE 20 MG TABLET (UD) PO SCH (10:00)
== END 2023-08-27 00:24 | disposition home or self-care (01) ==
LOC: JER 22:06
PROC: 3E0F7GC Introduction of Other Therapeutic Substance into Respiratory Tract, Via Natural or Artificial Opening (ICD-10-PCS; principal; 2023-08-26)
DX: R06.02 Shortness of breath (principal); J10.1 Influenza due to other identified influenza virus with other respiratory manifestations; J45.901 Unspecified asthma with (acute) exacerbation; Z20.822 Contact with and (suspected) exposure to COVID-19
CPT/HCPCS: 0241U-QW; 71045-TC-FY; 93005; 93010; 99285-25

== ENCOUNTER 2023-08-31 18:21 | Emergency (ER) | payer OTHER ==
[2023-08-31 18:44] VITALS: BP 151/89; PULSE 84; RESP 19; TEMP 98.3; BMI 39.0
[2023-08-31] MEDS ORDERED: ALBUTEROL SO4 2.5/IPRATROPIUM 0.5 INH SOL 3 ML VIAL.NEB. NEB ONE ×2 (20:15→20:30)
== END 2023-08-31 21:15 | disposition home or self-care (01) ==
LOC: JERFT 18:21 → JER 18:21 → JERFT 21:15
PROC: 3E0F7GC Introduction of Other Therapeutic Substance into Respiratory Tract, Via Natural or Artificial Opening (ICD-10-PCS; principal; 2023-08-31)
DX: R05.9 Cough, unspecified (principal)
CPT/HCPCS: 71046-TC-FY; 99283-25

== ENCOUNTER 2023-10-02 08:10 | Observation (INO) | payer OTHER ==
[2023-10-02] MEDS ORDERED: methylPREDNISolone NA SUCC 125 MG/2 ML VIAL IVPUSH ONE (08:39)
[2023-10-02] MEDS ORDERED: methylPREDNISolone NA SUCC 125 MG/2 ML VIAL ONE ×2 (08:51→12:03)
[2023-10-02] MEDS: ALBUTEROL SO4 2.5/IPRATROPIUM 0.5 INH SOL 3 ML VIAL.NEB. NEB SCH ×6 (09:17→23:53)
[2023-10-02 09:18] LABS: VENOUS BASE EXCESS 0.3 mmol/L (-2-2); VENOUS O2 SATURATION 65.7 % (70-80); VENOUS PCO2 46.5 mmHg (38-52); VENOUS PH 7.367 (7.310-7.410)
[2023-10-02 09:20] LABS: BASO % 0.4 % (0-2.0); EOS % 8.8 % (0-4.5); HEMATOCRIT 36.7 % (32.4-45.2); LYMPH % 42.5 % (8-40); MCH 27.4 pg (25.7-33.7); MCHC 32.8 g/dl (32.0-36.0); MEAN CELL VOLUME 83.8 fl (80-96); MONO % 5.6 % (3.8-10.2); NEUT % 42.7 % (42.8-82.8); PLATELET COUNT 258 10^3/uL (134-434); RBC 4.38 M/mm3 (3.60-5.2); RDW 15.4 % (11.6-15.6); WHITE BLOOD COUNT 7.8 K/mm3 (4.0-10.0)
[2023-10-02 09:38] LABS: POTASSIUM 3.6 mmol/L (3.5-5.1)
[2023-10-02 09:40] LABS: CALCIUM 8.9 mg/dL (8.5-10.1)
[2023-10-02 09:41] LABS: BLOOD UREA NITROGEN 10.5 mg/dL (7-18)
[2023-10-02 09:44] LABS: CREATININE 0.6 mg/dL (0.55-1.3)
[2023-10-02 09:45] LABS: BILIRUBIN,TOTAL 0.5 mg/dL (0.2-1)
[2023-10-02 09:46] LABS: TOT PROT 7.4 g/dl (6.4-8.2)
[2023-10-02] MEDS ORDERED: MAGNESIUM SULF 50% (8.12 MEQ/2 ML-1 GM VIAL) ONE (12:02)
[2023-10-02] MEDS ORDERED: ALBUTEROL SO4 2.5/IPRATROPIUM 0.5 INH SOL 3 ML VIAL.NEB. NEB ONE ×2 (12:06→12:40)
[2023-10-02] MEDS: MAGNESIUM 1GM/D5W - 1 GM/100 ML IVPB IVPB ONE ×2 (12:12→13:00)
[2023-10-02] MEDS ORDERED: ALBUTEROL SO4 HFA INHALER IH PRN (12:57)
[2023-10-02] MEDS: LOSARTAN POTASSIUM 50 MG TABLET PO SCH (13:58)
[2023-10-02] MEDS ORDERED: methylPREDNISolone NA SUCC 40 MG/1 ML VIAL ONE (18:14)
[2023-10-02] MEDS: methylPREDNISolone NA SUCC 40 MG/1 ML VIAL IVPUSH SCH (18:20)
[2023-10-02 20:47] VITALS: BMI 39.4
[2023-10-02] MEDS: MONTELUKAST NA 10 MG TABLET PO SCH (22:08)
[2023-10-02] MEDS: BUDESONIDE/FORMETEROL FUMARATE 160/4.5 mcg INHALER IH SCH (22:47)
[2023-10-03] MEDS: methylPREDNISolone NA SUCC 40 MG/1 ML VIAL IVPUSH SCH ×3 (02:09→17:14)
[2023-10-03] MEDS: ALBUTEROL SO4 2.5/IPRATROPIUM 0.5 INH SOL 3 ML VIAL.NEB. NEB SCH ×4 (08:50→20:05)
[2023-10-03 09:41] LABS: HEMATOCRIT 36.5 % (32.4-45.2); MCH 27.3 pg (25.7-33.7); MCHC 32.8 g/dl (32.0-36.0); MEAN CELL VOLUME 83.1 fl (80-96); MEAN PLT VOLUME 9.4 fl (7.5-11.1); PLATELET COUNT 316 10^3/uL (134-434); RBC 4.39 M/mm3 (3.60-5.2); RDW 15.6 % (11.6-15.6); WHITE BLOOD COUNT 16.4 K/mm3 (4.0-10.0)
[2023-10-03 09:55] LABS: POTASSIUM 4.1 mmol/L (3.5-5.1)
[2023-10-03 09:57] LABS: CALCIUM 9.5 mg/dL (8.5-10.1)
[2023-10-03 09:58] LABS: ALBUMIN 3.9 g/dl (3.4-5.0); BLOOD UREA NITROGEN 19.9 mg/dL (7-18); MAGNESIUM 2.4 mg/dL (1.8-2.4)
[2023-10-03 10:01] LABS: CREATININE 0.7 mg/dL (0.55-1.3); PHOSPHOROUS 3.8 mg/dL (2.5-4.9)
[2023-10-03 10:02] LABS: BILIRUBIN,TOTAL 0.4 mg/dL (0.2-1); TOT PROT 7.4 g/dl (6.4-8.2)
[2023-10-03] MEDS: ENOXAPARIN NA (PORCINE) 40 MG/0.4 ML DISP.SYRIN SQ SCH (10:14)
[2023-10-03] MEDS: LOSARTAN POTASSIUM 50 MG TABLET PO SCH (10:14)
[2023-10-03] MEDS: BUDESONIDE/FORMETEROL FUMARATE 160/4.5 mcg INHALER IH SCH ×2 (10:15→21:26)
[2023-10-03 18:42] VITALS: RESP 20
[2023-10-03] MEDS: MONTELUKAST NA 10 MG TABLET PO SCH (21:27)
[2023-10-04] MEDS: methylPREDNISolone NA SUCC 40 MG/1 ML VIAL IVPUSH SCH ×2 (02:37→09:30)
[2023-10-04] MEDS: ALBUTEROL SO4 2.5/IPRATROPIUM 0.5 INH SOL 3 ML VIAL.NEB. NEB SCH ×2 (07:42→11:05)
[2023-10-04] MEDS: ENOXAPARIN NA (PORCINE) 40 MG/0.4 ML DISP.SYRIN SQ SCH (09:30)
[2023-10-04] MEDS: LOSARTAN POTASSIUM 50 MG TABLET PO SCH (09:30)
[2023-10-04] MEDS: BUDESONIDE/FORMETEROL FUMARATE 160/4.5 mcg INHALER IH SCH (09:31)
[2023-10-04] MEDS ORDERED: PANTOPRAZOLE 40 MG TABLET PO SCH (10:00)
[2023-10-04 10:57] VITALS: BP 137/84; PULSE 82; TEMP 98.1
== END 2023-10-04 14:15 | disposition home or self-care (01) ==
LOC: JER 08:10 → JERBED 11:50 → J8W 20:01
PROVIDERS: ADMIT Internal Medicine; ATTEND Nurse Practitioner Family
PROC: 3E0F7GC Introduction of Other Therapeutic Substance into Respiratory Tract, Via Natural or Artificial Opening (ICD-10-PCS; principal; 2023-10-02)
PROC: 3E023GC Introduction of Other Therapeutic Substance into Muscle, Percutaneous Approach (ICD-10-PCS; 2023-10-02)
PROC: 3E033GC Introduction of Other Therapeutic Substance into Peripheral Vein, Percutaneous Approach (ICD-10-PCS; 2023-10-02)
DX: J45.901 Unspecified asthma with (acute) exacerbation (principal); D72.119 Hypereosinophilic syndrome [HES], unspecified; I10 Essential (primary) hypertension; E66.9 Obesity, unspecified; K57.92 Diverticulitis of intestine, part unspecified, without perforation or abscess without bleeding; Z29.89 Encounter for other specified prophylactic measures
CPT/HCPCS: 0241U-QW; 36415; 71045-TC-FY; 80053; 82803; 83735; 84100; 84484; 85025; 85027; 93005; 93010; 94150; 94640; 96365; 96372; 96375; 96376; 99285-25; G0378

== ENCOUNTER 2023-12-12 20:42 | Emergency (ER) | payer OTHER ==
[2023-12-12 20:50] VITALS: BP 149/85; PULSE 83; RESP 24; TEMP 98.7; BMI 39.6
[2023-12-12] MEDS ORDERED: methylPREDNISolone NA SUCC 125 MG/2 ML VIAL ONE (21:43)
[2023-12-12] MEDS ORDERED: ALBUTEROL SO4 2.5/IPRATROPIUM 0.5 INH SOL 3 ML VIAL.NEB. NEB ONE (21:43)
[2023-12-12] MEDS: methylPREDNISolone NA SUCC 125 MG/2 ML VIAL IVPUSH ONE (21:44)
[2023-12-12] MEDS: ALBUTEROL SO4 2.5/IPRATROPIUM 0.5 INH SOL 3 ML VIAL.NEB. NEB ONE (21:44)
[2023-12-12 21:54] LABS: BASO % 0.2 % (0-2.0); EOS % 3.6 % (0-4.5); HEMATOCRIT 36.5 % (32.4-45.2); HEMOGLOBIN 11.9 GM/dL (10.7-15.3); LYMPH % 45.4 % (8-40); MCH 27.4 pg (25.7-33.7); MCHC 32.7 g/dl (32.0-36.0); MEAN CELL VOLUME 83.9 fl (80-96); MEAN PLT VOLUME 9.1 fl (7.5-11.1); MONO % 6.9 % (3.8-10.2); NEUT % 43.9 % (42.8-82.8); PLATELET COUNT 261 10^3/uL (134-434); RBC 4.35 M/mm3 (3.60-5.2); RDW 14.8 % (11.6-15.6); WHITE BLOOD COUNT 7.6 K/mm3 (4.0-10.0)
[2023-12-12 22:16] LABS: POTASSIUM 3.9 mmol/L (3.5-5.1)
[2023-12-12 22:18] LABS: CALCIUM 8.5 mg/dL (8.5-10.1)
[2023-12-12 22:19] LABS: ALBUMIN 3.5 g/dl (3.4-5.0); BLOOD UREA NITROGEN 21.3 mg/dL (7-18)
[2023-12-12 22:22] LABS: CREATININE 0.6 mg/dL (0.55-1.3)
[2023-12-12 22:24] LABS: BILIRUBIN,TOTAL 0.2 mg/dL (0.2-1); TOT PROT 6.8 g/dl (6.4-8.2)
[2023-12-12 22:27] LABS: N-TERMINAL BNP 24.1 pg/ml (5-125)
[2023-12-13] MEDS: ALBUTEROL SO4 HFA INHALER IH ONE (00:02)
[2023-12-13] MEDS ORDERED: ALBUTEROL SO4 HFA INHALER IH ONE (00:06)
== END 2023-12-13 00:04 | disposition home or self-care (01) ==
LOC: JER 20:42
PROC: 3E033GC Introduction of Other Therapeutic Substance into Peripheral Vein, Percutaneous Approach (ICD-10-PCS; principal; 2023-12-12)
PROC: 3E0F7GC Introduction of Other Therapeutic Substance into Respiratory Tract, Via Natural or Artificial Opening (ICD-10-PCS; 2023-12-12)
PROC: 3E0F7GC Introduction of Other Therapeutic Substance into Respiratory Tract, Via Natural or Artificial Opening (ICD-10-PCS; 2023-12-12)
DX: R05.9 Cough, unspecified (principal); R06.02 Shortness of breath; J45.21 Mild intermittent asthma with (acute) exacerbation; Z20.822 Contact with and (suspected) exposure to COVID-19
CPT/HCPCS: 0241U-QW; 36415; 71046-TC-FY; 80053; 83880; 84484; 84703; 85025; 93005; 93010; 99285-25

== ENCOUNTER 2024-01-18 10:17 | Emergency (ER) | payer OTHER ==
[2024-01-18 10:24] VITALS: BMI 40.0
[2024-01-18] MEDS ORDERED: ALBUTEROL SO4 2.5/IPRATROPIUM 0.5 INH SOL 3 ML VIAL.NEB. NEB ONE (11:10)
[2024-01-18] MEDS ORDERED: DEXAMETHASONE SOD PHOSPHATE 10 MG/1 ML VIAL ONE (11:10)
[2024-01-18 11:11] LABS: BASO % 0.4 % (0-2.0); EOS % 9.7 % (0-4.5); HEMATOCRIT 37.9 % (32.4-45.2); HEMOGLOBIN 12.3 GM/dL (10.7-15.3); MCH 27.4 pg (25.7-33.7); MCHC 32.5 g/dl (32.0-36.0); MEAN CELL VOLUME 84.1 fl (80-96); MEAN PLT VOLUME 8.8 fl (7.5-11.1); MONO % 6.8 % (3.8-10.2); NEUT % 43.1 % (42.8-82.8); PLATELET COUNT 260 10^3/uL (134-434); RBC 4.51 M/mm3 (3.60-5.2); RDW 14.2 % (11.6-15.6); WHITE BLOOD COUNT 5.3 K/mm3 (4.0-10.0)
[2024-01-18] MEDS: ALBUTEROL SO4 2.5/IPRATROPIUM 0.5 INH SOL 3 ML VIAL.NEB. NEB SCH (11:15)
[2024-01-18] MEDS: DEXAMETHASONE SOD PHOSPHATE 10 MG/1 ML VIAL IVPUSH ONE (11:15)
[2024-01-18 11:25] LABS: POTASSIUM 4.2 mmol/L (3.5-5.1)
[2024-01-18 11:26] LABS: CALCIUM 9.2 mg/dL (8.5-10.1)
[2024-01-18 11:27] LABS: BLOOD UREA NITROGEN 10.8 mg/dL (7-18)
[2024-01-18 11:30] LABS: CREATININE 0.6 mg/dL (0.55-1.3)
[2024-01-18 11:32] LABS: BILIRUBIN,TOTAL 0.6 mg/dL (0.2-1); TOT PROT 7.3 g/dl (6.4-8.2)
[2024-01-18 12:14] VITALS: BP 141/74; PULSE 84; RESP 20; TEMP 98.2
== END 2024-01-18 13:00 | disposition home or self-care (01) ==
LOC: JERFT 10:17
PROC: 3E030GC Introduction of Other Therapeutic Substance into Peripheral Vein, Open Approach (ICD-10-PCS; principal; 2024-01-18)
PROC: 3E0F7GC Introduction of Other Therapeutic Substance into Respiratory Tract, Via Natural or Artificial Opening (ICD-10-PCS; 2024-01-18)
DX: J45.901 Unspecified asthma with (acute) exacerbation (principal)
CPT/HCPCS: 36415; 71046-TC-FY; 80053; 85025; 99284-25; J1100

== ENCOUNTER 2024-05-06 15:53 | Emergency (ER) | payer OTHER ==
[2024-05-06 15:58] VITALS: RESP 18; TEMP 98.4; BMI 32.3
[2024-05-06] MEDS ORDERED: ALBUTEROL SO4 2.5/IPRATROPIUM 0.5 INH SOL 3 ML VIAL.NEB. NEB ONE ×2 (16:25→18:06)
[2024-05-06] MEDS: ALBUTEROL SO4 2.5/IPRATROPIUM 0.5 INH SOL 3 ML VIAL.NEB. NEB SCH (16:48)
[2024-05-06] MEDS ORDERED: DEXAMETHASONE 4 MG TABLET (FP) ONE (16:51)
[2024-05-06] MEDS: DEXAMETHASONE 4 MG TABLET (FP) PO ONE (16:56)
[2024-05-06] MEDS: ALBUTEROL SO4 0.083% IH SOL 2.5 MG/3 ML VIAL.NEB. NEB SCH (18:08)
[2024-05-06] MEDS: ALBUTEROL SO4 0.083% IH SOL 2.5 MG/3 ML VIAL.NEB. NEB ONE (18:09)
[2024-05-06 18:42] VITALS: BP 167/91; PULSE 106
== END 2024-05-06 18:55 | disposition home or self-care (01) ==
LOC: JER 15:53
PROC: 3E0F7GC Introduction of Other Therapeutic Substance into Respiratory Tract, Via Natural or Artificial Opening (ICD-10-PCS; principal; 2024-05-06)
PROC: 3E0F7GC Introduction of Other Therapeutic Substance into Respiratory Tract, Via Natural or Artificial Opening (ICD-10-PCS; 2024-05-06)
DX: J45.21 Mild intermittent asthma with (acute) exacerbation (principal); R05.9 Cough, unspecified; R07.89 Other chest pain; Z20.822 Contact with and (suspected) exposure to COVID-19
CPT/HCPCS: 0241U-QW; 99284-25

== ENCOUNTER 2024-06-23 08:56 | Emergency (ER) | payer OTHER ==
[2024-06-23 09:07] VITALS: TEMP 98.4; BMI 39.0
[2024-06-23] MEDS ORDERED: ALBUTEROL SO4 2.5/IPRATROPIUM 0.5 INH SOL 3 ML VIAL.NEB. NEB ONE (09:19)
[2024-06-23] MEDS: ALBUTEROL SO4 2.5/IPRATROPIUM 0.5 INH SOL 3 ML VIAL.NEB. NEB ONE (09:20)
[2024-06-23] MEDS: DEXAMETHASONE SOD PHOSPHATE 10 MG/1 ML VIAL IM ONE (10:00)
[2024-06-23] MEDS ORDERED: DEXAMETHASONE SOD PHOSPHATE 10 MG/1 ML VIAL ONE (10:21)
[2024-06-23] MEDS ORDERED: MAGNESIUM SULFATE IN WATER 2 GM/50 ML IVPB IVPB ONE (10:21)
[2024-06-23] MEDS: MAGNESIUM SULFATE IN WATER 2 GM/50 ML IVPB IVPB ONE (10:30)
[2024-06-23] MEDS: DEXAMETHASONE SOD PHOSPHATE 10 MG/1 ML VIAL IVPUSH ONE (10:30)
[2024-06-23 10:49] LABS: BASO % 0.2 % (0-2.0); EOS % 5.8 % (0-4.5); HEMATOCRIT 36.1 % (32.4-45.2); LYMPH % 31.3 % (8-40); MCH 26.7 pg (25.7-33.7); MCHC 33.2 g/dl (32.0-36.0); MEAN CELL VOLUME 80.4 fl (80-96); MEAN PLT VOLUME 8.9 fl (7.5-11.1); MONO % 7.1 % (3.8-10.2); NEUT % 55.6 % (42.8-82.8); PLATELET COUNT 302 10^3/uL (134-434); RBC 4.49 M/mm3 (3.60-5.2); RDW 15.3 % (11.6-15.6); WHITE BLOOD COUNT 7.6 K/mm3 (4.0-10.0)
[2024-06-23 11:22] LABS: POTASSIUM 4.1 mmol/L (3.5-5.1)
[2024-06-23 11:24] LABS: ALBUMIN 4.1 g/dl (3.4-5.0); CALCIUM 9.4 mg/dL (8.5-10.1)
[2024-06-23 11:25] LABS: BLOOD UREA NITROGEN 16.8 mg/dL (7-18)
[2024-06-23 11:28] LABS: CREATININE 0.5 mg/dL (0.55-1.3)
[2024-06-23 11:30] LABS: BILIRUBIN,TOTAL 0.4 mg/dL (0.2-1); TOT PROT 7.7 g/dl (6.4-8.2)
[2024-06-23 11:54] VITALS: BP 157/80; RESP 14
[2024-06-23 12:02] VITALS: PULSE 95
== END 2024-06-23 12:16 | disposition home or self-care (01) ==
LOC: JER 08:56
PROC: 3E033GC Introduction of Other Therapeutic Substance into Peripheral Vein, Percutaneous Approach (ICD-10-PCS; principal; 2024-06-23)
PROC: 3E033GC Introduction of Other Therapeutic Substance into Peripheral Vein, Percutaneous Approach (ICD-10-PCS; 2024-06-23)
PROC: 3E0F7GC Introduction of Other Therapeutic Substance into Respiratory Tract, Via Natural or Artificial Opening (ICD-10-PCS; 2024-06-23)
DX: J45.901 Unspecified asthma with (acute) exacerbation (principal); R06.02 Shortness of breath; R07.89 Other chest pain
CPT/HCPCS: 36415; 80053; 85025; 93005; 93010; 99284-25; J1100

== ENCOUNTER 2024-06-27 13:54 | Emergency (ER) | payer OTHER ==
[2024-06-27 14:01] VITALS: TEMP 97.9; BMI 32.3
[2024-06-27] MEDS ORDERED: ALBUTEROL SO4 2.5/IPRATROPIUM 0.5 INH SOL 3 ML VIAL.NEB. NEB ONE (15:06)
[2024-06-27] MEDS: ALBUTEROL SO4 2.5/IPRATROPIUM 0.5 INH SOL 3 ML VIAL.NEB. NEB ONE (15:14)
[2024-06-27] MEDS ORDERED: DEXAMETHASONE SOD PHOSPHATE 10 MG/1 ML VIAL ONE (15:40)
[2024-06-27] MEDS: DEXAMETHASONE SOD PHOSPHATE 10 MG/1 ML VIAL IM ONE (15:46)
[2024-06-27 18:27] VITALS: BP 116/78; PULSE 89; RESP 18
== END 2024-06-27 18:27 | disposition home or self-care (01) ==
LOC: JER 13:54
PROC: 3E023GC Introduction of Other Therapeutic Substance into Muscle, Percutaneous Approach (ICD-10-PCS; principal; 2024-06-27)
PROC: 3E0F7GC Introduction of Other Therapeutic Substance into Respiratory Tract, Via Natural or Artificial Opening (ICD-10-PCS; 2024-06-27)
DX: J45.901 Unspecified asthma with (acute) exacerbation (principal); R06.02 Shortness of breath; R05.9 Cough, unspecified; R09.89 Other specified symptoms and signs involving the circulatory and respiratory systems
CPT/HCPCS: 71045-TC-FY; 99284-25; J1100